=== PATIENT | female | born 1960 | race Caucasian/White ===

== ENCOUNTER 2023-08-09 17:52 | Emergency (ER) | payer OTHER, SELFPAY ==
[2023-08-09 17:56] VITALS: BP 107/84
--- NOTE | 2023-08-09 20:12 | ED.GENMED ---
History of Present Illness
<Linda Mckeon PA-C - Last Filed: 08/10/23 00:26>
General
Chief Complaint: Head Injury
Source: patient
Exam Limitations: none
Time Seen by Provider: 08/09/23 20:10
Nursing documentation reviewed up to this point in time: agreed with
Travel History
Have you had any contact with someone who has COVID-19?: No
Do you have any symptoms of coronavirus? Fever > 100 degrees, chills, cough, shortness of breath, sore throat, loss of taste or smell, muscle aches, or headache?: No
History of Present Illness
History of Present Illness:
This is a 63-year-old female past medical history of dementia, schizophrenia, A-fib on Eliquis, who presents to the emergency department today with head pain following a fall. Patient herself reports that she was sitting at the dining room table
and states that she was given too much to eat and felt nauseous and leaning over to vomit currently fell off her chair at the dining room table and hit her head. EMS documents reports a different story, stating that she was found on the floor next
to her bed. Patient does report that she does have a history of frequent falls. It is unclear how long she has been on the ground.
Past History
<Linda Mckeon PA-C - Last Filed: 08/10/23 00:26>
Past History
ED Past Medical History: HTN, Hypercholesterolemia, Psychiatric (Schizoaffective disorder, bipolar affective disorder) and Other (Anemia, DVT/PE with underlying factor V Leiden deficiency, chronic kidney disease)
ED Past Surgical History: None
Social History
Tobacco: Non-smoker
Alcohol: None
Drug: None
Personal:
Living: detention
Review of Systems
<Linda Mckeon PA-C - Last Filed: 08/10/23 00:26>
Review of Systems
All Other Systems: ROS reviewed and negative except as documented in HPI and ROS
Phy Exam
<Linda Mckeon PA-C - Last Filed: 08/10/23 00:26>
Physical Exam
Physical Exam:
General: patient appears well and is in no acute distress
Skin: warm and dry, no rashes or lesions
HEENT: hematoma located on the right side of the forehead, no other palpable masses.
Cards: regular rate and rhythm, no murmurs
Pulm: normal respiratory effort
Neuro: Patient oriented to person but not time. CN II-XII intact. Patient moving all extremities.
Psych: Patient's baseline cognition unclear, patient is confused. Patient does have hx of dementia and schizophrenia. Patient often does not have logical responses to questions.
Course
<ISAC Lucas Last Filed: 08/10/23 00:26>
Orders/Labs/Results
Orders:
Orders
08/09/23 18:01
CT Head W/o Iv Contrast Urgent
Comment:
Reason For Exam: fall on eliquis
08/09/23 21:11
Complete Blood Count/With Diff Urgent
Comprehensive Metabolic Panel Urgent
[place] Urgent
08/09/23 22:54
Sodium Zirconium Cyclosilicate [Lokelma] 10 gram PO NOW STA
08/09/23 23:05
CR Chest - 2 Views Urgent
Comment:
Reason For Exam: lower pulse ox, altered mental status
Abnormal Lab Results
08/09/23
21:11
RBC 2.92 L 10^6/uL
(4.20-5.40)
Hgb 10.1 L g/dL
(12.0-16.0)
Hct 29.9 L %
(37.0-47.0)
MCV 102.4 H fL
(81.0-99.0)
MCH 34.6 H pg
(27.0-31.0)
Absolute Neuts (auto) 7.0 H 10^3/uL
(1.4-6.5)
Absolute Lymphs (auto) 1.1 L 10^3/uL
(1.2-3.4)
Neutrophils % 79.5 H %
(42.2-75.2)
Lymphocytes % 12.1 L %
(20.5-51.1)
Sodium 133 L mmol/L
(135-145)
Potassium 5.6 H mmol/L
(3.5-5.1)
Carbon Dioxide 21 L mmol/L
(22-30)
BUN 44 H mg/dl
(7-17)
Creatinine 3.3 H mg/dL
(0.6-1.0)
AST 37 H U/L
(14-36)
[place] < 0.2 L mmol/L
(0.6-1.2)
08/09/23 21:11
08/09/23 21:11
Vital Signs
Initial and Last Documented VS:
Initial Vital Signs
Temp Pulse Resp BP Pulse Ox
98.3 F 104 16 107/84 92
08/09/23 17:56 08/09/23 17:56 08/09/23 17:56 08/09/23 17:56 08/09/23 17:56
Last Documented Vital Signs
Temp Pulse Resp BP Pulse Ox
98.3 F 104 16 107/84 92
08/09/23 17:56 08/09/23 17:56 08/09/23 17:56 08/09/23 17:56 08/09/23 17:56
<Fco No, DO - Last Filed: 08/09/23 20:52>
Orders/Labs/Results
Orders:
Orders
08/09/23 18:01
CT Head W/o Iv Contrast Urgent
Comment:
Reason For Exam: fall on eliquis
08/09/23 21:11
Complete Blood Count/With Diff Urgent
Comprehensive Metabolic Panel Urgent
[place] Urgent
08/09/23 22:54
Sodium Zirconium Cyclosilicate [Lokelma] 10 gram PO NOW STA
08/09/23 23:05
CR Chest - 2 Views Urgent
Comment:
Reason For Exam: lower pulse ox, altered mental status
Abnormal Lab Results
08/09/23
21:11
RBC 2.92 L 10^6/uL
(4.20-5.40)
Hgb 10.1 L g/dL
(12.0-16.0)
Hct 29.9 L %
(37.0-47.0)
MCV 102.4 H fL
(81.0-99.0)
MCH 34.6 H pg
(27.0-31.0)
Absolute Neuts (auto) 7.0 H 10^3/uL
(1.4-6.5)
Absolute Lymphs (auto) 1.1 L 10^3/uL
(1.2-3.4)
Neutrophils % 79.5 H %
(42.2-75.2)
Lymphocytes % 12.1 L %
(20.5-51.1)
Sodium 133 L mmol/L
(135-145)
Potassium 5.6 H mmol/L
(3.5-5.1)
Carbon Dioxide 21 L mmol/L
(22-30)
BUN 44 H mg/dl
(7-17)
Creatinine 3.3 H mg/dL
(0.6-1.0)
AST 37 H U/L
(14-36)
[place] < 0.2 L mmol/L
(0.6-1.2)
08/09/23 21:11
08/09/23 21:11
Vital Signs
Initial and Last Documented VS:
Initial Vital Signs
Temp Pulse Resp BP Pulse Ox
98.3 F 104 16 107/84 92
08/09/23 17:56 08/09/23 17:56 08/09/23 17:56 08/09/23 17:56 08/09/23 17:56
Last Documented Vital Signs
Temp Pulse Resp BP Pulse Ox
98.3 F 104 16 107/84 92
08/09/23 17:56 08/09/23 17:56 08/09/23 17:56 08/09/23 17:56 08/09/23 17:56
Procedures
<ISAC Lucas Last Filed: 08/10/23 00:26>
Laceration Closure
Right Eye brow:
Status of Wound: clean
Size of Wound in cm: 1
Description of Wound Edges: sharp
Preparation: cleaned with saline and cleaned with Betadine
Revision/Debridement: routine- no revision
Wound exploration: explored to base- no FB
Type of Closure: Dermabond-skin glue
<ISAC Lucas Last Filed: 08/10/23 00:26>
MDM/Problems Addressed
Differential Diagnosis Includes:
mechanical fall, scalp hematoma, superficial eyebrow laceration, intracranial hemorrhage
MDM/Problems Addressed:
fall, head injury
Chronic conditions affecting care: Other (Dementia, schizophrenia, atrial fibrillation, high blood pressure, hyperlipidemia, chronic renal failure, GERD, anxiety, bipolar disorder)
Acute Exacerbation and/or Progression of Chronic Illness:
schizophrenia
<ISAC Lucas Last Filed: 08/10/23 00:26>
*Radiology
Radiology exam reviewed: preliminary read by ED provider (Chest x-ray reveals no acute cardiopulmonary disease)
*Pulse Oximetry
Patient hypoxic: no
*Critical Care Note
Total Time (30-74mins, 75-104mins- exclusive of procedures): Not Applicable
Data Reviewed
Review of Other/Old Records Reveals: Discharge Summary (Reviewed discharge summary from GI bleed in March 2023)
Prescriptions/Medications Considered But Not Given:
Considered giving patient dose of lithium considering lithium level subtherapeutic, however based on reviewing records from EMS and chart it appears that patient no longer takes lithium based on previous episodes of severe toxicity
Further Testing Considered But Not Given:
n/a
<Linda Mckeon PA-C - Last Filed: 08/10/23 00:26>
Patient Management
Escalation/DeEscalation of care consider admission/obs:
This is a 63-year-old female with an extensive past medical history extensive psychiatric history who presents to the emergency department today with head trauma following a fall. She states that she fell while eating dinner. EMS reports revealed
that she likely fell getting out of bed. She does have a history of schizophrenia and frequently appears confused and is difficult to redirect. It appears that this may be her baseline mental status based on reviewing notes from recent
hospitalization in March. She does take Eliquis due to A-fib and her CT of the head did not reveal any acute bleed however did show a small hematoma on the scalp. Patient currently denies no headache or neck pain at this time. She
spontaneously moves her cervical spine, no imaging the cervical spine indicated at this time. Her CBC reveals anemia which is chronic for her, and her CMP shows chronic renal disease. Her potassium was 5.6 and we did treat her with lokelma. She
is not hyponatremic. At this point, she is stable for discharge.
ED Attending Note
<Linda Mckeon PA-C - Last Filed: 08/10/23 00:26>
-
Portions of this chart may have been created with voice recognition software.� Occasional wrong word or��sound alike� substitutions may have occurred due to the inherent limitations of voice recognition software.
<Fco No, DO - Last Filed: 08/09/23 20:52>
ED Attending Note
Patient seen and examined by attending physician: Yes
I performed the substantive portion of visit, reviewed & personally made and approve the management plan that is documented in note by myself or HOMERO.: Yes
ED Attending Note:
I have seen and evaluated the patient with a [id number] encounter. I have spoken to the advance practicer provider and involved in the medical history, the physical exam, medical decision making.
Evaluation and management service: agree unless noted differently below.
Results interpretation: agree unless noted differently below.
Focused HPI: 63-year-old female presenting with a fall. She was sent in for evaluation of hematoma to her right scalp
Physical exam: Hematoma to right scalp. Subcentimeter superficial laceration to right forehead. Patient appears confused but difficult to obtain whether or not this is baseline
Medical Decision Making: Given the fall and the mild confusion, will obtain basic blood work. CT head negative
Discharge Plan
Departure
Patient Disposition: Home (Routine Discharge)
Date of Disposition: 08/10/23
Time of Disposition: 00:02
Patient with high blood pressure during this ER visit?: No
Condition: Good
Discharge Problem:
Fall, Head injury
Instructions: Head Injury in Adults (DC), Fall Prevention for Older Adults
Prescriptions:
No Action
acetaminophen 500 mg Tablet
1,000 mg PO Q6H PRN (Reason: moderate pain)
sennosides [Senna Laxative] 8.6 mg Tablet
17.2 mg PO HS Qty: 0 0RF
carbamazepine 200 mg Tablet
200 mg PO BID Qty: 0 0RF
polyethylene glycol 3350 [HealthyLax] 17 gram Powder In Packet
17 g PO DAILY Qty: 0 0RF
clonazepam 1 mg Tablet
1 mg PO BID Qty: 4 0RF
sodium bicarbonate 650 mg Tablet
650 mg PO BID Qty: 0 0RF
benztropine 1 mg Tablet
1 mg PO BID Qty: 60 0RF
fluphenazine HCl 5 mg Tablet
5 mg PO HS Qty: 0 0RF
pantoprazole [Protonix] 20 MG tablet,delayed release (DR/EC)
40 mg PO DAILY Qty: 0 0RF
ascorbic acid (vitamin C) 500 mg Tablet
500 mg PO DAILY Qty: 0 0RF
ferrous sulfate [FeroSul] 325 MG tablet
325 mg PO DAILY Qty: 0 0RF
B complex with C 20-folic acid 1 mg Capsule
1 cap PO DAILY Qty: 0 0RF
lovastatin 20 mg Tablet
20 mg PO DAILY Qty: 0 0RF
metoprolol tartrate 25 MG tablet
25 mg PO DAILY Qty: 0 0RF
cholecalciferol (vitamin D3) 25 mcg (1,000 unit) Tablet
25 mcg PO DAILY Qty: 0 0RF
mirtazapine 15 mg Tablet
15 mg PO HS
apixaban 2.5 mg Tablet
2.5 mg PO BID
docusate sodium 100 mg capsule
200 mg PO HS
acetaminophen [Tylenol] 325 mg capsule
650 mg PO Q4HPRN PRN (Reason: mild pain/fever>100F)
Referrals:
Kirk Jeronimo MD [Family Provider] -
Activity Restrictions/Additional Instructions:
Your CT scan of your head did not show any evidence of bleeding.
Please follow-up with your primary care provider.
Please return to emergency department should you experience chest pain, shortness of breath, dizziness, lightheadedness, any further injuries, or other concerning symptoms.
Interventions
Interventions:
*Risk Screen - Suicide Last Done: 08/09/23 19:50
*General Assessment Last Done: 08/09/23 19:50
*Neglect/Abuse Screening Last Done: 08/09/23 19:50
ED- Fall Risk Assessment Last Done: 08/09/23 19:50
*ED COVID-19 Vaccine History Last Done: 08/09/23 19:50
ED- Neurological Assessment Last Done: 08/09/23 19:50
ED-Skin Assessment Last Done: 08/09/23 19:50
[2023-08-09 21:25] LABS: % Basophils 0.6 % (0-2); % Eosinophils 0.9 % (0-6); % Immature Granulocytes 0.3 % (0-0.5); % Lymphocytes 12.1 % (20.5-51.1); % Monocytes 6.6 % (1.7-9.3); % Neutrophils 79.5 % (42.2-75.2); Absolute Basophils 0.1 10^3/uL (0-0.2); Absolute Eosinophils 0.1 10^3/uL (0-0.7); Absolute Lymphocytes 1.1 10^3/uL (1.2-3.4); Absolute Monocytes 0.6 10^3/uL (0.1-0.6); Hematocrit 29.9 % (37.0-47.0); Hemoglobin 10.1 g/dL (12.0-16.0); Mean Corp Hgb Conc. 33.8 g/dL (33.0-37.0); Mean Corpuscular Hgb 34.6 pg (27.0-31.0); Mean Corpuscular Volume 102.4 fL (81.0-99.0); Mean Platelet Volume 9.2 fL (7.4-10.4); Nucleated Red Blood Cells % 0 %; Platelet Count 237 10^3/uL (130-400); Red Blood Cell Count 2.92 10^6/uL (4.20-5.40); Red Cell Dist. Width 13.7 % (11.5-14.5); White Blood Cell Count 8.8 10^3/uL (4.8-10.8)
[2023-08-09 21:51] LABS: ALT (SGPT) 24 U/L (0-35); AST (SGOT) 37 U/L (14-36); Albumin 4.3 g/dl (3.5-5.0); Alkaline Phosphatase 78 U/L (38-126); Blood Urea Nitrogen 44 mg/dl (7-17); Calcium 10.2 mg/dl (8.4-10.2); Carbon Dioxide 21 mmol/L (22-30); Chloride 106 mmol/L (98-107); Glucose 81 mg/dl (70-99); Lithium < 0.2 mmol/L (0.6-1.2); Potassium 5.6 mmol/L (3.5-5.1); Sodium 133 mmol/L (135-145); Total Bilirubin 0.7 mg/dl (0.2-1.3); Total Protein 6.8 g/dl (6.3-8.2); eGFR 15.11
== END 2023-08-10 02:49 | disposition home or self-care (01) ==
LOC: EMR 17:52
PROVIDERS: Physician Assistant; EMERGENCY PHYSICIAN Student in an Organized Health Care Education/Training Program; FAMILY PHYSICIAN Internal Medicine
DX: S01.111A Laceration without foreign body of right eyelid and periocular area, initial encounter (principal); S00.03XA Contusion of scalp, initial encounter; W07.XXXA Fall from chair, initial encounter; R11.2 Nausea with vomiting, unspecified; F03.93 Unspecified dementia, unspecified severity, with mood disturbance; F25.9 Schizoaffective disorder, unspecified; D68.51 Activated protein C resistance; I12.9 Hypertensive chronic kidney disease with stage 1 through stage 4 chronic kidney disease, or unspecified chronic kidney disease; N18.9 Chronic kidney disease, unspecified; Z79.01 Long term (current) use of anticoagulants
CPT/HCPCS: 99285; 12011; 70450; 71046; 80053; 80178; 85025

== ENCOUNTER → 2023-10-10 13:03 | Outpatient (REF) | payer OTHER, SELFPAY | LOC: HWRAD 13:03 | PROVIDERS: ATTENDING PHYSICIAN Physician Assistant; FAMILY PHYSICIAN Internal Medicine | DX: N18.4 Chronic kidney disease, stage 4 (severe) (principal) | CPT/HCPCS: 76770 ==

== ENCOUNTER → 2023-12-27 15:40 | Outpatient (REF) | payer OTHER, SELFPAY ==
[2023-12-27 12:56] LABS: % Eosinophils 14.6 % (0-6); % Immature Granulocytes 1.1 % (0-0.5); % Lymphocytes 15.6 % (20.5-51.1); % Monocytes 8.2 % (1.7-9.3); % Neutrophils 59.5 % (42.2-75.2); Absolute Basophils 0.1 10^3/uL (0-0.2); Absolute Eosinophils 0.8 10^3/uL (0-0.7); Absolute Immature Granulocytes 0.1 10^3/uL (0-0.05); Absolute Lymphocytes 0.8 10^3/uL (1.2-3.4); Absolute Monocytes 0.4 10^3/uL (0.1-0.6); Absolute Neutrophils 3.1 10^3/uL (1.4-6.5); Hematocrit 33.6 % (37.0-47.0); Hemoglobin 10.5 g/dL (12.0-16.0); Mean Corp Hgb Conc. 31.3 g/dL (33.0-37.0); Mean Corpuscular Hgb 33.4 pg (27.0-31.0); Mean Platelet Volume 9.1 fL (7.4-10.4); Nucleated Red Blood Cells % 0 %; Platelet Count 272 10^3/uL (130-400); Red Blood Cell Count 3.14 10^6/uL (4.20-5.40); Red Cell Dist. Width 13.9 % (11.5-14.5); White Blood Cell Count 5.3 10^3/uL (4.8-10.8)
== END ==
LOC: OIDL 15:40
PROVIDERS: ATTENDING PHYSICIAN Nurse Practitioner Adult Health
DX: I26.99 Other pulmonary embolism without acute cor pulmonale (principal)
CPT/HCPCS: 85025

== ENCOUNTER → 2024-08-03 16:12 | Outpatient (REF) | payer OTHER, SELFPAY ==
[2024-08-03 14:26] LABS: Iron 170 ug/dl (37-170)
[2024-08-03 14:36] LABS: Percent Saturation 101 % (20-50); Total Iron Binding Capacity 168 ug/dl (265-497)
== END ==
LOC: OIDL 16:12
PROVIDERS: ATTENDING PHYSICIAN Internal Medicine Hematology & Oncology
DX: I26.99 Other pulmonary embolism without acute cor pulmonale (principal)
CPT/HCPCS: 82728; 83540; 83550

== ENCOUNTER 2024-08-11 19:48 | Inpatient (IN) | payer OTHER, SELFPAY ==
[2024-08-11] VITALS (30 sets, daily range): BP systolic 77–141; BP diastolic 50–109
--- NOTE | 2024-08-11 10:01 | ED.GENMED ---
History of Present Illness
General
Chief Complaint: Fever
Source: patient
Exam Limitations: none
Time Seen by Provider: 08/11/24 09:52
History of Present Illness
History of Present Illness:
64-year-old female with history of dementia presents from [facility] with change in mental status. Fever was noted at the facility she was given Tylenol. She typically is oriented to self. Patient is a poor historian. She denies pain.
Past History
Past History
ED Past Medical History: HTN, Hypercholesterolemia, Psychiatric (Schizoaffective disorder, bipolar affective disorder) and Other (Anemia, DVT/PE with underlying factor V Leiden deficiency, chronic kidney disease)
ED Past Surgical History: None
Social History
Tobacco: Non-smoker
Alcohol: None
Drug: None
Personal:
Living: assisted
Phy Exam
Physical Exam
Physical Exam:
General: Cachectic appearing female no acute respiratory distress
HEENT: Normocephalic mucosa dry neck is supple
Heart: Regular rate and rhythm
Lungs: Clear no wheeze
Abdomen is soft nontender nondistended no guarding or rebound
Neurologic exam alert oriented to person and place no facial asymmetry no unilateral deficit noted
Extremities: No cyanosis or edema
Sepsis
Sepsis Screening
Sepsis Assessment: Severe Sepsis
Sepsis Screening: Hypotension
Sepsis Screen
Sepsis Screen: Severe Sepsis
Date: 08/11/24
Time: 11:21
Course
Orders/Labs/Results
Orders:
Orders
08/11/24 09:56
0.9% Sodium Chloride 1000 ml [Nss] 1,000 ml IV BOLUS
08/11/24 09:57
Acetaminophen [Tylenol] 650 mg PO NOW STA
CR Chest Portable - 1 View Urgent
Comment:
Reason For Exam: fever
Reason Study Needs to be Portable: Patient Unstable
08/11/24 10:05
COVID-19 Antigen Urgent
Source: Nasal Swab
Complete Blood Count/With Diff Urgent
Comprehensive Metabolic Panel Urgent
Lactic Acid Q4H
Comment: CANCEL 2nd LACTIC ACID IF 1st LACTIC ACID IS LESS THAN 2
Urinalysis Reflex To Culture Urgent
Date Specimen was Collected: 08/11/24
Time Specimen was Collected: 10:02
Urine Microscopic Reflex Cult Urgent
Blood Culture Q30M
INOCENCIO Source: Blood/Venous
Specimen Description:
Influenza A+B Rapid Molecular Urgent
INOCENCIO Source: Nasal Swab
Specimen Description:
Acetaminophen [Tylenol/Feverall] 650 mg RECTAL NOW STA
08/11/24 10:07
Blood Culture Q30M
INOCENCIO Source: Blood/Venous
Specimen Description:
08/11/24 11:17
0.9% Sodium Chloride 1000 ml [Nss] 1,000 ml IV BOLUS
08/11/24 11:18
Piperacillin/Tazo 3.375 Gram [Zosyn] 3.375 gram in 50 ml IV NOW
Vancomycin 1 Gram/200 ml [Vancocin] 1 gram in 200 ml IV NOW
Abnormal Lab Results
08/11/24
10:05
RBC 2.96 L 10^6/uL
(4.20-5.40)
Hgb 10.1 L g/dL
(12.0-16.0)
Hct 32.8 L %
(37.0-47.0)
MCV 110.8 H fL
(81.0-99.0)
MCH 34.1 H pg
(27.0-31.0)
MCHC 30.8 L g/dL
(33.0-37.0)
RDW 17.1 H %
(11.5-14.5)
Absolute Lymphs (auto) 0.8 L 10^3/uL
(1.2-3.4)
Absolute Monos (auto) 0.9 H 10^3/uL
(0.1-0.6)
Neutrophils % 77.6 H %
(42.2-75.2)
Lymphocytes % 9.9 L %
(20.5-51.1)
Monocytes % 11.1 H %
(1.7-9.3)
Sodium 154 H mmol/L
(135-145)
Chloride 122 H mmol/L
(98-107)
Carbon Dioxide 16 L mmol/L
(22-30)
BUN 90 H mg/dl
(7-17)
Creatinine 6.9 H* mg/dL
(0.6-1.0)
Glucose 104 H mg/dl
(70-99)
Calcium 10.9 H mg/dl
(8.4-10.2)
Leukocyte Esterase Rfl Trace A
(Negative)
Urine Albumin (Reflex) 2+ A
(Neg - Trace)
08/11/24 10:05
08/11/24 10:05
Vital Signs
Initial and Last Documented VS:
Initial Vital Signs
Temp Pulse Resp BP Pulse Ox
100.9 F H 94 17 77/50 97
08/11/24 09:47 08/11/24 09:47 08/11/24 09:47 08/11/24 09:47 08/11/24 09:47
Last Documented Vital Signs
Temp Pulse Resp BP Pulse Ox
100.9 F H 85 18 97/57 99
08/11/24 09:47 08/11/24 10:30 08/11/24 10:30 08/11/24 10:30 08/11/24 10:30
MDM/Problems Addressed
Differential Diagnosis Includes:
Patient with change in mental status. Noted to have temperature here 100.9. She is hypotensive on arrival. Concern for possible sepsis. Check urine COVID flu chest x-ray lactic acid blood cultures and blood work. Tylenol ordered fluids ordered.
Straight cath urine specimen pending. EKG was reviewed and shows normal sinus rhythm with rate of 95 without ischemic changes.
*Critical Care Note
Total Time (30-74mins, 75-104mins- exclusive of procedures): Not Applicable
Update Note
Update Note:
Patient hypotensive here flu and COVID-negative chest x-ray without obvious pneumonia. Urinalysis without obvious sign of infection. Concern for sepsis. Will give 2 L of fluid. Vancomycin and Zosyn ordered prophylactically with blood cultures
pending
ED Attending Note
-
Portions of this chart may have been created with voice recognition software.� Occasional wrong word or��sound alike� substitutions may have occurred due to the inherent limitations of voice recognition software.
Discharge Plan
Departure
Patient Disposition: Admit
Date of Disposition: 08/11/24
Time of Disposition: 11:21
Presentation/result/management discussed w/ accepting MD/DO: Hospitalist
Discharge Problem:
Sepsis, REINA (acute kidney injury)
Prescriptions:
No Action
acetaminophen 500 mg Tablet
1,000 mg PO Q6H PRN (Reason: moderate pain)
sennosides [Senna Laxative] 8.6 mg Tablet
17.2 mg PO HS Qty: 0 0RF
carbamazepine 200 mg Tablet
200 mg PO BID Qty: 0 0RF
polyethylene glycol 3350 [HealthyLax] 17 gram Powder In Packet
17 g PO DAILY Qty: 0 0RF
clonazepam 1 mg Tablet
1 mg PO BID Qty: 4 0RF
sodium bicarbonate 650 mg Tablet
650 mg PO BID Qty: 0 0RF
benztropine 1 mg Tablet
1 mg PO BID Qty: 60 0RF
fluphenazine HCl 5 mg Tablet
5 mg PO HS Qty: 0 0RF
pantoprazole [Protonix] 20 MG tablet,delayed release (DR/EC)
40 mg PO DAILY Qty: 0 0RF
ascorbic acid (vitamin C) 500 mg Tablet
500 mg PO DAILY Qty: 0 0RF
ferrous sulfate [FeroSul] 325 MG tablet
325 mg PO DAILY Qty: 0 0RF
B complex with C 20-folic acid 1 mg Capsule
1 cap PO DAILY Qty: 0 0RF
lovastatin 20 mg Tablet
20 mg PO DAILY Qty: 0 0RF
metoprolol tartrate 25 MG tablet
25 mg PO DAILY Qty: 0 0RF
cholecalciferol (vitamin D3) 25 mcg (1,000 unit) Tablet
25 mcg PO DAILY Qty: 0 0RF
mirtazapine 15 mg Tablet
15 mg PO HS
apixaban 2.5 mg Tablet
2.5 mg PO BID
docusate sodium 100 mg capsule
200 mg PO HS
acetaminophen [Tylenol] 325 mg capsule
650 mg PO Q4HPRN PRN (Reason: mild pain/fever>100F)
Referrals:
Kirk Jeronimo MD [Family Provider] -
Interventions
Interventions:
*Risk Screen - Suicide Last Done: 08/11/24 10:30
*General Assessment Last Done: 08/11/24 09:47
*Neglect/Abuse Screening Last Done: 08/11/24 09:47
ED- Fall Risk Assessment Last Done: 08/11/24 10:30
*ED COVID-19 Vaccine History Last Done: 08/11/24 09:47
ED- Neurological Assessment Last Done: 08/11/24 10:30
ED-Skin Assessment Last Done: 08/11/24 10:30
Discharge Date and Time
Print Language: SLOVENIAN
[2024-08-11] MEDS: TYLENOL/FEVERALL 650 MG RECTAL (10:10)
[2024-08-11] MEDS: NSS 1000 IV ×2 (10:10→11:53)
[2024-08-11 10:20] LABS: % Basophils 0.4 % (0-2); % Eosinophils 0.5 % (0-6); % Immature Granulocytes 0.5 % (0-0.5); % Lymphocytes 9.9 % (20.5-51.1); % Monocytes 11.1 % (1.7-9.3); % Neutrophils 77.6 % (42.2-75.2); Absolute Lymphocytes 0.8 10^3/uL (1.2-3.4); Absolute Monocytes 0.9 10^3/uL (0.1-0.6); Absolute Neutrophils 5.9 10^3/uL (1.4-6.5); Hematocrit 32.8 % (37.0-47.0); Hemoglobin 10.1 g/dL (12.0-16.0); Mean Corp Hgb Conc. 30.8 g/dL (33.0-37.0); Mean Corpuscular Hgb 34.1 pg (27.0-31.0); Mean Corpuscular Volume 110.8 fL (81.0-99.0); Mean Platelet Volume 9.6 fL (7.4-10.4); Nucleated Red Blood Cells % 0.9 %; Platelet Count 208 10^3/uL (130-400); Red Blood Cell Count 2.96 10^6/uL (4.20-5.40); Red Cell Dist. Width 17.1 % (11.5-14.5); White Blood Cell Count 7.6 10^3/uL (4.8-10.8)
[2024-08-11 10:31] LABS: Lactic Acid 1.2 mmol/L (0.7-2.0)
[2024-08-11 10:32] LABS: COVID-19 Antigen Negative (Negative)
[2024-08-11 10:37] LABS: Urine Albumin 2+ (Neg - Trace); Urine Bilirubin Negative (Negative); Urine Character Clear (Clear); Urine Color Yellow; Urine Glucose Negative (Negative); Urine Ketone Negative (Negative); Urine Leukocyte Trace (Negative); Urine Nitrite Negative (Negative); Urine Occult Blood Negative (Negative); Urine Specific Gravity 1.015 (<1.030); Urine Urobilinogen Negative (Neg - 1+)
[2024-08-11 10:38] LABS: ALT (SGPT) 24 U/L (0-35); AST (SGOT) 27 U/L (14-36); Alkaline Phosphatase 83 U/L (38-126); Blood Urea Nitrogen 90 mg/dl (7-17); Calcium 10.9 mg/dl (8.4-10.2); Carbon Dioxide 16 mmol/L (22-30); Chloride 122 mmol/L (98-107); Glucose 104 mg/dl (70-99); Potassium 4.9 mmol/L (3.5-5.1); Sodium 154 mmol/L (135-145); Total Bilirubin 0.6 mg/dl (0.2-1.3); Total Protein 6.3 g/dl (6.3-8.2)
[2024-08-11] MEDS: ZOSYN 50 IV (11:48)
[2024-08-11] MEDS: VANCOCIN 200 IV (11:53)
[2024-08-11 13:25] LABS: Urine Red Blood Cell None Seen /HPF (0-2); Urine White Cell 0-2 /HPF (0-5)
--- NOTE | 2024-08-11 18:39 | HPS.HSE ---
Addendum entered and electronically signed by Tino Perez DO 08/11/24 20:19:
Patient seen and examined independently. Agree with findings and plan as set forth by PAUL Reid.
Patient is a 64y F with PMH significant for bipolar/ schizoaffective disorder, A-Fib and CKD who presents to ED from local [place] for evaluation of mental status change. Noted to have temp of 100.9 on arrival in the ED. Normal CXR, urinalysis.
Negative COVID / Flu. No other evidence / findings of acute infection. Labs reveal significant REINA and patient appears hypovolemic on exam.
Ass:
Acute TME
REINA on CKD IV
Dehydration
Metabolic Acidosis
Benign Hypertension
Paroxysmal Atrial Fibrillation
Chronic Macrocytic Anemia
Chronic Impaired Cognition
Bipolar Disorder
Schizoaffective Disorder
Plan:
Admit for further evaluation and treatment.
IVFs with supplemental bicarb for now.
Nephrology evaluation for additional recommendations.
Observe off of further abx for now.
Follow fever curve and follow-up culture data.
Follow for any clinical changes.
Continue outpatient meds / psychotropic regimen.
Original Note:
Family Physician
-
Family Physician: Kirk Jeronimo
Chief Complaint
-
change in mental status
History of Present Illness
Patient is a 62-year-old female with past medical history significant for hypertension, CKD, atrial fibrillation, bipolar, and schizoaffective disorder who presented to [place] ED from [facility] via EMS with change in mental status and
fever.
Medical History
Past Medical History
Past Medical History: Reports Other
Additional Past Medical History:
hypertension
CKD
atrial fibrillation
bipolar
schizoaffective disorder
hx PE
hx toxic encephalopathy
Past Surgical History: Reports None
Social History
Unable to obtain full social history at this time due to: Dementia
Family History
Family History: Unable to Obtain
Allergies / Home Medications
Allergies reflects when Allergies were last updated in [facility].
Home Medications with original date entered in [facility]
Allergy/Medication List:
Allergies
Allergy/AdvReac Type Severity Reaction Status Date / Time
divalproex sodium Allergy Unknown Verified 08/11/24 10:33
[From Depakote]
lithium Allergy Unknown Verified 08/11/24 10:33
Home Medications
ascorbic acid (vitamin C) 500 mg tablet 500 mg PO DAILY Supplement #0 tabs 03/31/23
ferrous sulfate 325 mg (65 mg iron) tablet (FeroSul) 325 mg PO DAILY Supplement #0 tabs 03/31/23
polyethylene glycol 3350 17 gram oral powder packet (HealthyLax) 17 g PO DAILY Constipation #0 ea 03/31/23
sennosides 8.6 mg tablet (Senna Laxative) 17.2 mg (2 x 8.6 mg) PO HS Constipation #0 tabs 03/31/23
apixaban 2.5 mg tablet 2.5 mg PO BID 08/09/23
docusate sodium 100 mg capsule 200 mg PO HS Constipation 08/09/23
acetaminophen 325 mg tablet (Tylenol) 650 mg PO Q4H PRN mild pain/fever 08/11/24
amantadine HCl 100 mg tablet 100 mg PO BID drug induces dyskinesia 08/11/24
atorvastatin 40 mg tablet 40 mg PO DAILY 08/11/24
bisacodyl 10 mg rectal suppository 10 mg NE DAILY PRN no BM post MOM 08/11/24
carbamazepine 100 mg chewable tablet 300 mg PO BID 08/11/24
clonazepam 1 mg tablet 1 mg PO TID Mental Health/Anxiety 08/11/24
magnesium hydroxide 400 mg/5 mL oral suspension (Milk of Magnesia) 30 ml PO DAILYPRN PRN no BM x 72 hours 08/11/24
metoprolol succinate 25 mg capsule sprinkle, ext. release 24 hr 25 mg PO DAILY 08/11/24
mirtazapine 7.5 mg tablet 7.5 mg PO HS 08/11/24
pantoprazole 40 mg tablet,delayed release (Protonix) 40 mg PO DAILY 08/11/24
quetiapine 150 mg tablet 150 mg PO BID 08/11/24
sodium bicarbonate 650 mg tablet 650 mg PO TID 08/11/24
vitamin B complex-vitamin C-folic acid 0.8 mg tablet (Renal-Karina) 1 tab PO DAILY 08/11/24
Review of Systems
-
Unable to obtain full review of systems at this time due to: Dementia
History Source: [facility]
Constitutional: Reports Fever
Neurological: Reports Other (change in mental status )
Physical Exam
Vital Signs
Vital Signs
Temp Pulse Resp BP Pulse Ox
98.6 F 87 16 116/65 100
08/11/24 15:00 08/11/24 16:00 08/11/24 16:00 08/11/24 16:00 08/11/24 15:30
Physical Exam
General: Well Developed, Well Nourished, No Apparent Distress, Comfortable and Slurred Speech
HEENT: NormoCephalic, Atraumatic, [place] Conjunctivae, Nose Appears Normal and Ears Appear Normal
Respiratory: Clear and Non Labored Respirations
Cardiac: S1/S2 and Regular Rhythm; No Murmur, Rub or Gallop
Breast: Deferred by me
GI: Soft, Non Tender, Non Distended and Normal Bowel Sounds; No Organomegaly
Rectal: Deferred by Provider
Genito-urinary: Deferred by me
Musculoskeletal: No Clubbing, No Cyanosis and No Edema
Skin: Warm and IV/Catheter Site; No Rash
Neuro: Awake, Alert and Nonfocal/grossly intact
Psych: Calm and Confused
Laboratory Results
-
08/11/24 10:05
08/11/24 10:05
Laboratory Results
Lactic Acid 1.2 mmol/L (0.7-2.0) 08/11/24 10:05
Total Bilirubin 0.6 mg/dl (0.2-1.3) 08/11/24 10:05
AST 27 U/L (14-36) 08/11/24 10:05
ALT 24 U/L (0-35) 08/11/24 10:05
Alkaline Phosphatase 83 U/L (38-126) 08/11/24 10:05
Data Reviewed
-
Diagnostic Radiology: Report Reviewed by me (CXR: No acute cardiopulmonary process. Improved inspiratory effort.)
Medical Tests (Nuc Med, Echo, EKG etc): Report Reviewed by me (EKG: NORMAL SINUS RHYTHM NORMAL ECG)
Lab Data: Labs Reviewed by me (WBC 7.6, hgb 10.1, hct 32.8, Na+ 154, BUN 90, Creat 6.9, CO2 16, Ca 10.9)
Impression/Plan
-
IMPRESSION/PLAN:
#acute on chronic kidney disease
BUN 90, Creat 6.9, Na+ 154, Ca+ 10.9, CO2 16
- consult nephrology
- Bicarb IVF
- monitor CMP
- renal US
#hypertension
- continue metoprolol
#hyperlipidemia
- continue atorvastatin
#atrial fibrillation
EKG: NORMAL SINUS RHYTHM
- continue Eliquis, metoprolol
#bipolar
#schizoaffective disorder
- continue clonazepam, mirtazapine, quetiapine
#anemia
hgb 10.1/hct 32.8
- Hematest stool pending
- monitor h/h
#hx PE
#hx toxic encephalopathy
Code status: DNR
DVT Prophylaxis: heparin sq
[2024-08-11] MEDS: COLACE 200 MG PO (23:03)
[2024-08-11] MEDS: SENOKOT 17.2 MG PO (23:04)
[2024-08-11] MEDS: ELIQUIS 2.5 MG PO (23:05)
[2024-08-11] MEDS: SEROQUEL 150 MG PO (23:05)
[2024-08-11] MEDS: SYMMETREL 100 MG PO (23:06)
[2024-08-11] MEDS: KLONOPIN 1 MG PO (23:11)
[2024-08-11] MEDS: SODIUM BICARBONATE 1075 MEQ IV (23:17)
[2024-08-11] MEDS: REMERON 7.5 MG PO ×2 (23:20→23:21)
[2024-08-11] MEDS: TEGRETOL CHEWABLE 300 MG PO (23:20)
[2024-08-12] VITALS (7 sets, daily range): BP systolic 101–143; BP diastolic 59–83
[2024-08-12 06:08] LABS: Hematocrit 32.4 % (37.0-47.0); Hemoglobin 9.7 g/dL (12.0-16.0); Mean Corp Hgb Conc. 29.9 g/dL (33.0-37.0); Mean Corpuscular Hgb 34.2 pg (27.0-31.0); Mean Corpuscular Volume 114.1 fL (81.0-99.0); Mean Platelet Volume 9.7 fL (7.4-10.4); Platelet Count 162 10^3/uL (130-400); Red Blood Cell Count 2.84 10^6/uL (4.20-5.40); Red Cell Dist. Width 17.7 % (11.5-14.5); White Blood Cell Count 6.2 10^3/uL (4.8-10.8)
[2024-08-12 06:37] LABS: ALT (SGPT) 33 U/L (0-35); AST (SGOT) 29 U/L (14-36); Albumin 3.3 g/dl (3.5-5.0); Alkaline Phosphatase 83 U/L (38-126); Blood Urea Nitrogen 86 mg/dl (7-17); Calcium 10.3 mg/dl (8.4-10.2); Carbon Dioxide 16 mmol/L (22-30); Chloride 126 mmol/L (98-107); Glucose 93 mg/dl (70-99); Potassium 4.7 mmol/L (3.5-5.1); Sodium 153 mmol/L (135-145); Total Bilirubin 0.4 mg/dl (0.2-1.3); Total Protein 5.5 g/dl (6.3-8.2); eGFR 7.18
[2024-08-12] MEDS: PROTONIX 40 MG PO (07:57)
[2024-08-12] MEDS: ELIQUIS 2.5 MG PO ×2 (07:57→20:05)
[2024-08-12] MEDS: KLONOPIN 1 MG PO ×3 (07:57→22:42)
[2024-08-12] MEDS: TOPROL XL 25 MG PO (07:57)
[2024-08-12] MEDS: FEOSOL 325 MG PO (07:57)
[2024-08-12] MEDS: LIPITOR 40 MG PO (07:57)
[2024-08-12] MEDS: NEPHROCAP 1 CAPSULE PO (08:30)
[2024-08-12] MEDS: VITAMIN C 500 MG PO (08:30)
[2024-08-12] MEDS: SYMMETREL 100 MG PO ×2 (08:30→20:50)
[2024-08-12] MEDS: TEGRETOL CHEWABLE 300 MG PO ×2 (08:30→20:04)
--- NOTE | 2024-08-12 09:52 | W.CON.NEPH ---
Consultation
-
Date/Time Consultation Requested: 08/11/24 2154
Date/Time Consultation Performed: 08/12/24 1100
Requesting Provider: Tino Landers
Performing Provider: Rina Mcmahon
Reason for Consultation: REINA with CKD, hypernatremia
Medical History
-
Chief Complaint: AMS
History of Present Illness:
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
metabolic acidosis on PO bicarb therapy who presents to ED from [facility] for evaluation of mental status change. Reportedly had fever at [place], and temp of 100.9 on arrival in the ED. Labs noted cr 6.9, bicarb 16, sodium 153 hence
nephrology consulted. She had Normal CXR, urinalysis. Negative COVID / Flu. She was hypotensive in 70s ini ER now improved with IVF.
reports pt was followed with Dr Villalta Nephrology at [facility] for CKD and and was sent for US for AVF. But now thinks she may not do well on HD so having second thoughts. last saw Nephrology 2weeks ago.
Past Medical History
hypertension
CKD
atrial fibrillation
bipolar
schizoaffective disorder
SZDO
hx PE, factor V Leiden
hx toxic encephalopathy
Dementia
HLD
GERD
HTTN
Social History
unable to obtain with MS change
Family History
unable to obtain with MS change
Allergies / Home Medications
Allergy/AdvReac Type Severity Reaction Status Date / Time
divalproex sodium Allergy Unknown Verified 08/11/24 10:33
[From Depakote]
lithium Allergy Unknown Verified 08/11/24 10:33
�Medication �Instructions �Recorded �Confirmed �Type
ascorbic acid (vitamin C) 500 mg 500 mg PO DAILY Supplement #0 tabs 03/31/23 08/11/24 Rx
tablet
ferrous sulfate 325 mg (65 mg 325 mg PO DAILY Supplement #0 tabs 03/31/23 08/11/24 Rx
iron) tablet (FeroSul)
polyethylene glycol 3350 17 gram 17 g PO DAILY Constipation #0 ea 03/31/23 08/11/24 Rx
oral powder packet (HealthyLax)
sennosides 8.6 mg tablet (Senna 17.2 mg (2 x 8.6 mg) PO HS 03/31/23 08/11/24 Rx
Laxative) Constipation #0 tabs
apixaban 2.5 mg tablet 2.5 mg PO BID 08/09/23 08/11/24 History
docusate sodium 100 mg capsule 200 mg PO HS Constipation 08/09/23 08/11/24 History
acetaminophen 325 mg tablet 650 mg PO Q4H PRN mild pain/fever 08/11/24 08/11/24 History
(Tylenol)
amantadine HCl 100 mg tablet 100 mg PO BID drug induces 08/11/24 08/11/24 History
dyskinesia
atorvastatin 40 mg tablet 40 mg PO DAILY 08/11/24 08/11/24 History
bisacodyl 10 mg rectal suppository [address] DAILY PRN no BM post MOM 08/11/24 08/11/24 History
carbamazepine 100 mg chewable 300 mg PO BID 08/11/24 08/11/24 History
tablet
clonazepam 1 mg tablet 1 mg PO TID Mental Health/Anxiety 08/11/24 08/11/24 History
magnesium hydroxide 400 mg/5 mL 30 ml PO DAILYPRN PRN no BM x 72 08/11/24 08/11/24 History
oral suspension (Milk of Magnesia) hours
metoprolol succinate 25 mg capsule 25 mg PO DAILY 08/11/24 08/11/24 History
sprinkle, ext. release 24 hr
mirtazapine 7.5 mg tablet 7.5 mg PO HS 08/11/24 08/11/24 History
pantoprazole 40 mg tablet,delayed 40 mg PO DAILY 08/11/24 08/11/24 History
release (Protonix)
quetiapine 150 mg tablet 150 mg PO BID 08/11/24 08/11/24 History
sodium bicarbonate 650 mg tablet 650 mg PO TID 08/11/24 08/11/24 History
vitamin B complex-vitamin C-folic 1 tab PO DAILY 08/11/24 08/11/24 History
acid 0.8 mg tablet (Renal-Karina)
Review of Systems
-
Unable to obtain due to MS change
Physical Exam
Vital Signs
Vital Signs
Temp Pulse Resp BP Pulse Ox
98.3 F 73 22 132/82 100
08/12/24 08:01 08/12/24 08:01 08/12/24 08:01 08/12/24 08:01 08/12/24 08:01
Lab Results
WBC 6.2 10^3/uL (4.8-10.8) 08/12/24 05:17
RBC 2.84 10^6/uL (4.20-5.40) L 08/12/24 05:17
Hgb 9.7 g/dL (12.0-16.0) L 08/12/24 05:17
Hct 32.4 % (37.0-47.0) L 08/12/24 05:17
Plt Count 162 10^3/uL (130-400) D 08/12/24 05:17
Sodium 153 mmol/L (135-145) H 08/12/24 05:17
Potassium 4.7 mmol/L (3.5-5.1) 08/12/24 05:17
Chloride 126 mmol/L (98-107) H 08/12/24 05:17
Carbon Dioxide 16 mmol/L (22-30) L 08/12/24 05:17
BUN 86 mg/dl (7-17) H 08/12/24 05:17
Creatinine 6.1 mg/dL (0.6-1.0) H* 08/12/24 05:17
eGFR 7.18 08/12/24 05:17
Glucose 93 mg/dl (70-99) 08/12/24 05:17
Calcium 10.3 mg/dl (8.4-10.2) H 08/12/24 05:17
Albumin 3.3 g/dl (3.5-5.0) L 08/12/24 05:17
Physical Exam
General: No Distress, Nontoxic and Other (not responsive)
HEENT: Neck Supple and No JVD
Respiratory: Clear, Normal Excursion and Nonlabored Respirations
Cardiac: S1/S2 and Regular Rate/Rhythm
Breast: Deferred by me
Abdomen: Soft, Nontender and Nondistended
Musculoskeletal: No Cyanosis and No Edema
Skin: No Rash
Neuro: Other (unbale to assess with AMS)
Psych: Other (unable to assess with AMS)
Data Reviewed
-
Radiology: Report Reviewed by me and Discussed with Family
Labs: Labs Reviewed by me, Discussed with Physician and Discussed with Family
Assessment/Plan
-
IMP:
Acute TME
GPC bacteremia
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
Non gap Metabolic Acidosis
Hypernatremia
Mild hypercalcemia
Anemia-macrocytic
Hypotension on admit
Benign Hypertension
Paroxysmal Atrial Fibrillation
Chronic Macrocytic Anemia
Chronic Impaired Cognition
Bipolar Disorder
Schizoaffective Disorder
SZDO?
h/o DVT, PE -factor V leiden
Plan:
[place]MS from [place]
REINA-last cr was at 3.3 in Jul 2023, no recent baseline known
suspect prerenal, bland UA, check bladder scan and renal US, check Fena
would cont hypotonic fluids specially for hypernatremia
free water deficit is close to 2lit
Also met acidosis -resume po bicarb when starts po
will try to correct hypernatremia first
follow labs later today and adjust IVF
no emergent indication of HD however high risk of needing if no improvement
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
noted +ve bld cx-echo pending, ID consulted
dose meds renally
d/w primary
[2024-08-12] MEDS: SODIUM BICARBONATE 1075 MEQ IV ×2 (09:54→21:55)
[2024-08-12] MEDS: SEROQUEL 150 MG PO ×2 (09:55→20:04)
--- NOTE | 2024-08-12 09:58 | W.PN.HOSP.TC ---
Today's Communication/Plan
-
continue bicarbonate IVF
Renal US, bladder scans
Nephrology consult
Vanco pending ID consult, Echo
Assessment / Plan
Assessment / Plan
Assessment:
Acute TME
Febrile illness
- UA/CXR clear
- Bcx x 2 growing GPC - unsure if real vs contaminant with both sets drawn 2 minutes apart - start empiric IV Vanco (requires intensive monitoring of levels)
- check Echo to eval for endocarditis
- ID consult
REINA on CKD IV
Dehydration with acute hypernatremia, hypercalcemia
acute Metabolic Acidosis
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
- continue bicarbonate IVF
- follow BMPs
- check bladder scans
- nephrology consulted
Benign Hypertension
Paroxysmal Atrial Fibrillation
- continue Eliquis
- continue Metoprolol
Chronic Macrocytic Anemia
- Hb stable around 9.5 to 10 range
Chronic Impaired Cognition (likely Dementia)
Bipolar Disorder
Schizoaffective Disorder with hx of psychosis
- continue Amantadine/Carbamazepine/Klonopin/Remeron/Seroquel
Hx of Factor V Leiden (hx of DVTs)
- maintained now on Eliquis; previously Coumadin
GERD on PPI
DVT ppx:
Code: DNR/DNI
Anticipated Discharge: > 48 hours
Subjective/Interval History
-
Date of Service: August 12, 2024
no new complaints at present
Objective Data
-
Labs:
Laboratory Results
08/12/24
05:17
WBC 6.2
Hgb 9.7 L
Hct 32.4 L
Plt Count 162 D
Sodium 153 H
Potassium 4.7
Chloride 126 H
Carbon Dioxide 16 L
BUN 86 H
Creatinine 6.1 H*
Glucose 93
Calcium 10.3 H
Total Bilirubin 0.4
AST 29
ALT 33
Alkaline Phosphatase 83
Vital Signs:
Vital Signs
Temp Pulse Resp BP Pulse Ox
98.3 F 73 22 132/82 100
08/12/24 08:01 08/12/24 08:01 08/12/24 08:01 08/12/24 08:01 08/12/24 08:01
I&O
08/11/24 08/12/24 08/13/24
06:59 06:59 06:59
Intake Total 1080 / 1080
Output Total 450 / 450
Balance 630 / 630
Physical Exam
-
General: No Apparent Distress
HEENT: Normocephalic and Atraumatic
Respiratory: Negative Wheezes
Cardiac: Regular Rhythm and S1/S2
GI: Soft and Nontender
Neuro: Awake and Alert
Psych: Calm
Data Reviewed
-
Total Time Spent with Patient (in minutes): 51
Labs: Labs Reviewed by me
--- NOTE | 2024-08-12 10:10 | PTCARENOTE ---
Pt w/ good appetite, but needs a lot of assistance w/ eating d/t tremors. Does not have dentures so does better w/ soft foods.
--- NOTE | 2024-08-12 12:38 | PTOTSP ---
Speech Therapy Evaluation:
Pt with chronic risk of dysphagia (dementia) that is acutely exacerbated by change in mental status. No s/sx of aspiration at bedside, although oral phase impacted by status of dentition/lingua. Pt with increased risk of aspiration given dependence
for oral care and feeding. CXR without evidence of PNA.
Recommend:
1. Downgrade to baseline diet of IDDSI Level 5 (minced and moist solids) and Thin Liquids
2. Medications crushed in applesauce
3. Direct SPV and 1:1 assistance [address] feeding
[address] ST to follow - likely brief
[2024-08-12 13:29] LABS: Vancomycin Random 13.7 ug/ml
--- NOTE | 2024-08-12 14:02 | PHA.VAN.IN ---
Assessment
- Assessment
Renal Function: Appears elevated from baseline
Maximum Temperature: 100.9
Minimum Temperature: 98.3
Plan
- Plan
Initial / Loading Dose: vancomycin 1 g x 1 on 08.11, vancomycin 500 mg x 1 on 08.12
Monitoring: dose by level. Next level on 08.13 @ 0600
Pharmacokinetics Vancomycin I
- -
Patient Age: 64
Patient Sex: Female
Vancomycin Day #: 2
Indication: Bacteremia
Requesting Provider: Yfn Zuleta
Pertinent Antimicrobial Allergies:
none
Height / Weight:
Actual Weight 41.3 kg
Pertinent Past Medical History: REINA on CKD,
- Vital Signs / Lab Results
Temp Pulse Resp BP Pulse Ox
99.1 F 74 18 104/65 95
08/12/24 11:39 08/12/24 11:39 08/12/24 11:39 08/12/24 11:39 08/12/24 11:39
Lab Results - Hematology
08/11/24 08/12/24
10:05 05:17
WBC 7.6 6.2
Lab Results - Chemistry
08/11/24 08/12/24
10:05 05:17
BUN 90 H 86 H
Creatinine 6.9 H* 6.1 H*
Albumin 4.0 3.3 L
08/11/24 08/11/24
10:00 10:05
Lactic Acid Cancelled 1.2
Lab Results - Urine
08/11/24
10:05
Urine Nitrite (Reflex) Negative
Leukocyte Esterase Rfl Trace A
Urine WBC (Reflex) 0-2
Ur Squamous Epith Cells 3-5
Microbiology Results
08/11/24 10:07 Blood Culture - Preliminary
Blood/Venous Positive culture in progress
Gram Stain - Preliminary
08/11/24 10:05 Blood Culture - Preliminary
Blood/Venous Positive culture in progress
Gram Stain - Preliminary
08/11/24 10:05 Influenza Types A & B (OLGA) - Final
Nasal Swab Negative for Influenza A & B, NAAT
Negative results must be combined with clinical observations
and patient history.
Nucleic Acid Amplification test (NAAT)performed on the
[employer] platform.
--- NOTE | 2024-08-12 14:15 | PTCARENOTE ---
Bladder scan done d/t decreased urine output for >525. Pt prompted to void but unable. Straight cathed for 600 mL clear/yellow urine. Pt w/ dark brown/black stool smears in diaper - heme test negative.
[2024-08-12] MEDS: VANCOCIN HCL 500 MG 100 IV (14:48)
--- NOTE | 2024-08-12 15:41 | CON.ID ---
Consultation
-
Date/Time Consultation Requested: 08/12/2024 0845
Date/Time Consultation Performed: 08/12/2024 1450
Requesting Provider: Dr. Coulter
Performing Provider: Dr. Fitch
Reason for Consultation: Bacteremia, change in mental status
Chief Complaint / Past History
History of Present Illness
Leyda Albarado is a 65-year-old female being seen in infectious ease consultation at the request of Dr. Coulter regarding bacteremia and change in mental status. History is obtained from chart review along with patient interview, but patient was
found to provide very little in the way of history for me.
The patient has underlying history of schizoaffective disorder, along with bipolar disease. She resides at [facility]. She was brought to the ER on 08/11/2024 after staff at the facility noted a change in her overall mental status,
although the degree of which is not noted in the record. In the emergency room, she was found to be febrile, and blood cultures obtained at the time of admission Patrick Jones felt to be positive. Infectious Diseases is asked to comment on further
antimicrobial therapy.
At the present time she denies any pain. She denies having any fevers or chills. She denies any cough. She denies any abdominal discomfort. Further review of systems is limited.
Past History
Additional Past Medical History:
HTN
CKD
A-fib
Schizoaffective disorder
Bipolar disease
Past Surgical History: None
Allergy History:
divalproex sodium [From Depakote] Allergy (Verified 08/11/24 10:33)
Unknown
lithium Allergy (Verified 08/11/24 10:33)
Unknown
Medications Reviewed: Yes
Current Antibiotics:
Vancomycin
Social History
Tobacco: Non-Smoker
Alcohol: None
Drug: None
Personal: Single
Living: Skilled Nursing
Family History
Family History: Not Pertinent
Review of Systems
Vital Signs
Temp Pulse Resp BP Pulse Ox
99.1 F 74 18 104/65 95
08/12/24 11:39 08/12/24 11:39 08/12/24 11:39 08/12/24 11:39 08/12/24 11:39
Physical Exam
Physical Exam
Constitutional: No Acute Distress, Comfortable, Chronically Ill and Non-toxic
Eyes: No Conjunctival Hemorrhage and Sclera Anicteric
Oral: No Thrush and No Ulcers
Cardiovascular: Regular Rate and S1/S2; Negative S3/S4
Pulmonary: Clear; Negative Wheezes, Rales or Rhonchi
Gastrointestinal: Soft, Non Tender, Non Distended, Normal Bowel Sounds, No Rebound and No Guarding
Extremities: Negative Edema, Clubbing, Cyanosis or Erythema
Neurological: Awake and Alert
Psychological: Calm and Confused
Lab / Diagnostic Study Results
08/12/24 05:17
Abs Immat Gran (auto) 0.0 10^3/uL (0-0.05) 08/11/24 10:05
Absolute Neuts (auto) 5.9 10^3/uL (1.4-6.5) 08/11/24 10:05
Absolute Lymphs (auto) 0.8 10^3/uL (1.2-3.4) L 08/11/24 10:05
Absolute Monos (auto) 0.9 10^3/uL (0.1-0.6) H 08/11/24 10:05
Absolute Basos (auto) 0.0 10^3/uL (0-0.2) 08/11/24 10:05
Immature Gran % 0.5 % (0-0.5) 08/11/24 10:05
Neutrophils % 77.6 % (42.2-75.2) H 08/11/24 10:05
Lymphocytes % 9.9 % (20.5-51.1) L 08/11/24 10:05
Monocytes % 11.1 % (1.7-9.3) H 08/11/24 10:05
Eosinophils % 0.5 % (0-6) 08/11/24 10:05
Basophils % 0.4 % (0-2) 08/11/24 10:05
Lactic Acid 1.2 mmol/L (0.7-2.0) 08/11/24 10:05
Ur Squamous Epith Cells 3-5 /LPF (Few) 08/11/24 10:05
Microbiology Results
Micro:
08/11/24 10:07 Blood Culture - Preliminary
Blood/Venous Positive culture in progress
Gram Stain - Preliminary
08/11/24 10:05 Blood Culture - Preliminary
Blood/Venous Positive culture in progress
Gram Stain - Preliminary
08/12/24 05:17 MRSA Screen - Pending
Nose
08/11/24 10:05 Influenza Types A & B (OLGA) - Final
Nasal Swab Negative for Influenza A & B, NAAT
Negative results must be combined with clinical observations
and patient history.
Nucleic Acid Amplification test (NAAT)performed on the
[employer] platform.
Imaging:
08/12/2024 ECHO (TTE): Normal LV size and function. EF approximately 55%. Mild concentric left ventricular hypertrophy. No significant valvular pathology noted. Please see full dictation for additional detail.
08/12/2024 Renal ultrasound: Findings are suggestive of bilateral renal disease although no aggressive renal mass demonstrated. No hydronephrosis noted.
Assessment / Plan
Bacteremia with GPC's (aerobic bottles of 2 sets)
Change in mental status; suspect TME
Normal white count with left shift
Hypernatremia
REINA on CKD
HTN
CKD
A-fib
Schizoaffective disorder
Bipolar disease
Recommendations:
Continue with empiric vancomycin for the present. Follow levels closely to prevent further nephrotoxicity.
Await further culture data to guide further antimicrobial selection/de-escalation.
Monitor white count and temperature curve.
Monitor creatinine and Est CrCl.
Further recommendations as additional data is returned.
[2024-08-12 16:06] LABS: Blood Urea Nitrogen 77 mg/dl (7-17); Calcium 9.4 mg/dl (8.4-10.2); Carbon Dioxide 20 mmol/L (22-30); Chloride 119 mmol/L (98-107); Glucose 131 mg/dl (70-99); Potassium 4.3 mmol/L (3.5-5.1); Sodium 150 mmol/L (135-145); eGFR 8.31
[2024-08-12 17:05] LABS: Urine Sodium 65 mmol/L (30-90)
[2024-08-12] MEDS: SODIUM BICARBONATE IV (21:59)
--- NOTE | 2024-08-12 22:30 | PTCARENOTE ---
Pt received from to [facility].
[2024-08-12] MEDS: REMERON 7.5 MG PO (22:41)
[2024-08-12] MEDS: COLACE 200 MG PO (22:42)
[2024-08-12] MEDS: SENOKOT 17.2 MG PO (22:42)
[2024-08-13] VITALS (8 sets, daily range): BP systolic 100–154; BP diastolic 60–98; PULSE 69; O2SAT 96
[2024-08-13 07:46] LABS: Hematocrit 34.3 % (37.0-47.0); Hemoglobin 10.5 g/dL (12.0-16.0); Mean Corp Hgb Conc. 30.6 g/dL (33.0-37.0); Mean Corpuscular Hgb 33.7 pg (27.0-31.0); Mean Corpuscular Volume 109.9 fL (81.0-99.0); Mean Platelet Volume 9.7 fL (7.4-10.4); Platelet Count 176 10^3/uL (130-400); Red Blood Cell Count 3.12 10^6/uL (4.20-5.40); Red Cell Dist. Width 18.4 % (11.5-14.5); White Blood Cell Count 5.5 10^3/uL (4.8-10.8)
[2024-08-13 08:17] LABS: Blood Urea Nitrogen 70 mg/dl (7-17); Calcium 9.8 mg/dl (8.4-10.2); Carbon Dioxide 24 mmol/L (22-30); Chloride 117 mmol/L (98-107); Glucose 104 mg/dl (70-99); Sodium 152 mmol/L (135-145)
[2024-08-13 08:20] LABS: Vancomycin Random 17.8 ug/ml
--- NOTE | 2024-08-13 10:01 | W.PN.NEPH.PH ---
Today's Communication / Plan
-
Hypotonic IV fluids
Assessment/Plan
-
IMP:
Acute TME
GPC bacteremia
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
Non gap Metabolic Acidosis
Hypernatremia
Mild hypercalcemia
Anemia-macrocytic
Hypotension on admit
Benign Hypertension
Paroxysmal Atrial Fibrillation
Chronic Macrocytic Anemia
Chronic Impaired Cognition
Bipolar Disorder
Schizoaffective Disorder
SZDO?
h/o DVT, PE -factor V leiden
Plan:
A/w AMS from [place]
REINA-last cr was at 3.3 in Jul 2023, no recent baseline known
Continue hypotonic fluids, 1/4ns
no emergent indication of HD however high risk of needing if no improvement
High risk situation
Previously Dr. Patel with
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
-
-
Date of Service: August 13, 2024
CC / HPI / ROS
-
Chief Complaint:
REINA
History of Present Illness:
REINA/Cr down to 5.1
Sodium remains elevated at 152
Acidosis corrected
BP Stable
Review of Systems:
No chest pain or shortness of breath
Labs
-
Labs:
WBC 5.5 10^3/uL (4.8-10.8) 08/13/24 07:29
RBC 3.12 10^6/uL (4.20-5.40) L 08/13/24 07:29
Hgb 10.5 g/dL (12.0-16.0) L 08/13/24 07:29
Hct 34.3 % (37.0-47.0) L 08/13/24 07:29
Plt Count 176 10^3/uL (130-400) 08/13/24 07:29
Sodium 152 mmol/L (135-145) H 08/13/24 07:29
Potassium 4.0 mmol/L (3.5-5.1) 08/13/24 07:29
Chloride 117 mmol/L (98-107) H 08/13/24 07:29
Carbon Dioxide 24 mmol/L (22-30) 08/13/24 07:29
BUN 70 mg/dl (7-17) H 08/13/24 07:29
Creatinine 5.1 mg/dL (0.6-1.0) H* 08/13/24 07:29
eGFR 8.90 08/13/24 07:29
Glucose 104 mg/dl (70-99) H 08/13/24 07:29
Calcium 9.8 mg/dl (8.4-10.2) 08/13/24 07:29
Albumin 3.3 g/dl (3.5-5.0) L 08/12/24 05:17
Physical Exam
-
Vital Signs:
Vital Signs
Temp Pulse Resp BP Pulse Ox
97.9 F 66 20 146/88 97
08/13/24 07:55 08/13/24 07:55 08/13/24 07:55 08/13/24 07:55 08/13/24 07:55
Cardiovascular:: Regular rate and rhythm
Respiratory:: Bilateral: Coarse
Lung Excursion:: Normal
Abdomen:: Nontender and Soft
Bowel Sounds:: Normal
Extremity Edema:: None: Bilateral:
--- NOTE | 2024-08-13 10:02 | PHA.VAN.FU ---
Vancomycin Assessment / Plan
- Assessment
Renal Function: SCR Decreasing
WBC's are: WNL
In the past 24 hrs, patient has been: Afebrile
- Dosing Plan
Dosing by Level: Hold off on dosing today (R=17.8 on 08.13)
- Monitoring Plan
Random Level: 1.31 @ 0600
- Follow Up
Pharmacy will continue to follow.
Vancomycin Follow UP
- -
Patient Age: 64
Patient Sex: Female
Vancomycin Day #: 3
Indication: Bacteremia
Requesting Provider: Yfn Zuleta
Pertinent Antimicrobial Allergies:
none
Height / Weight:
Actual Weight 44.497 kg
Pertinent Past Medical History: REINA on CKD,
- Vital Signs / Lab Results
Temp Pulse Resp BP Pulse Ox
97.9 F 66 20 146/88 97
08/13/24 07:55 08/13/24 07:55 08/13/24 07:55 08/13/24 07:55 08/13/24 07:55
Lab Results - Hematology
08/11/24 08/12/24 08/13/24
10:05 05:17 07:29
WBC 7.6 6.2 5.5
Lab Results - Chemistry
08/11/24 08/12/24 08/12/24
10:05 05:17 15:31
BUN 90 H 86 H 77 H
Creatinine 6.9 H* 6.1 H* 5.4 H*
Albumin 4.0 3.3 L
08/13/24
07:29
BUN 70 H
Creatinine 5.1 H*
Albumin
08/11/24 08/11/24
10:00 10:05
Lactic Acid Cancelled 1.2
Microbiology Results
08/11/24 10:07 Blood Culture - Preliminary
Blood/Venous Streptococcus species
Gram Stain - Preliminary
08/11/24 10:05 Blood Culture - Preliminary
Blood/Venous Streptococcus species
Gram Stain - Preliminary
08/12/24 05:17 MRSA Screen - Final
Nose Staph aureus MRSA
08/11/24 10:05 Influenza Types A & B (OLGA) - Final
Nasal Swab Negative for Influenza A & B, NAAT
Negative results must be combined with clinical observations
and patient history.
Nucleic Acid Amplification test (NAAT)performed on the
[employer] platform.
Therapeutic Drug Monitoring
Random Vancomycin 17.8 ug/ml 08/13/24 07:29
[2024-08-13] MEDS: TEGRETOL CHEWABLE 300 MG PO ×2 (10:10→20:15)
[2024-08-13] MEDS: SEROQUEL 150 MG PO ×2 (10:11→20:16)
[2024-08-13] MEDS: FEOSOL 325 MG PO (10:11)
[2024-08-13] MEDS: PROTONIX 40 MG PO (10:11)
[2024-08-13] MEDS: KLONOPIN 1 MG PO ×3 (10:11→21:21)
[2024-08-13] MEDS: LIPITOR 40 MG PO (10:11)
[2024-08-13] MEDS: VITAMIN C 500 MG PO (10:11)
[2024-08-13] MEDS: ELIQUIS 2.5 MG PO ×2 (10:11→20:15)
[2024-08-13] MEDS: SYMMETREL 100 MG PO ×2 (10:11→20:13)
[2024-08-13] MEDS: TOPROL XL 25 MG PO (10:11)
[2024-08-13] MEDS: NEPHROCAP 1 CAPSULE PO (10:11)
--- NOTE | 2024-08-13 10:11 | W.PN.HOSP.TC ---
Today's Communication/Plan
-
continue IVF per Renal. repeat labs 4pm
continue Vanco, follow ID reccs
Assessment / Plan
Assessment / Plan
Assessment:
Acute TME
Strep bacteremia
- UA/CXR clear
- Bcx x 2 growing strep - unsure if real vs contaminant with both sets drawn 2 minutes apart - continue empiric IV Vanco (requires intensive monitoring of levels)
- Echo without evidence of endocarditis
- ID following
REINA on CKD IV
Dehydration with acute hypernatremia, hypercalcemia
acute Metabolic Acidosis
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
- continue IVF, now hypotonic 1/4 NS; repeat labs afternoon
- follow BMPs
- check bladder scans
- nephrology following
- detention poor candidate for HD; agrees per discussion with Renal
Benign Hypertension
Paroxysmal Atrial Fibrillation
- continue Eliquis
- continue Metoprolol
Chronic Macrocytic Anemia
- Hb stable around 9.5 to 10 range
Chronic Impaired Cognition (likely Dementia)
Bipolar Disorder
Schizoaffective Disorder with hx of psychosis
- continue Amantadine/Carbamazepine/Klonopin/Remeron/Seroquel
Hx of Factor V Leiden (hx of DVTs)
- maintained now on Eliquis; previously Coumadin
GERD on PPI
Dysphagia
- on IDDSI 5 diet
DVT ppx:
Code: DNR/DNI
Anticipated Discharge: > 48 hours
Subjective/Interval History
-
Date of Service: August 13, 2024
no new complaints at present
Objective Data
-
Labs:
Laboratory Results
08/13/24 08/13/24
07:29 16:00
WBC 5.5
Hgb 10.5 L
Hct 34.3 L
Plt Count 176
Sodium 152 H Pending
Potassium 4.0 Pending
Chloride 117 H Pending
Carbon Dioxide 24 Pending
BUN 70 H Pending
Creatinine 5.1 H* Pending
Glucose 104 H Pending
Calcium 9.8 Pending
Vital Signs:
Vital Signs
Temp Pulse Resp BP Pulse Ox
97.9 F 66 20 146/88 97
08/13/24 07:55 08/13/24 07:55 08/13/24 07:55 08/13/24 07:55 08/13/24 07:55
I&O
08/12/24 08/13/24 08/14/24
06:59 06:59 06:59
Intake Total 1080 / 1080
Output Total 450 / 450 1150 / 1150
Balance 630 / 630 -1150 / -1150
Physical Exam
-
General: No Apparent Distress
HEENT: Normocephalic and Atraumatic
Respiratory: Negative Wheezes
Cardiac: Regular Rhythm and S1/S2
GI: Soft and Nontender
Musculoskeletal: No Edema
Neuro: AO x 3
Hematologic / Lymphatic: No Lymphadenopathy
Psych: Calm
Data Reviewed
-
Total Time Spent with Patient (in minutes): 51
Labs: Labs Reviewed by me
[2024-08-13] MEDS: SODIUM CHLORIDE 1009.625 MEQ IV ×2 (10:58→21:25)
[2024-08-13] MEDS: SODIUM BICARBONATE IV (11:03)
--- NOTE | 2024-08-13 12:39 | W.PN.ID1 ---
Date of Service
Date of Service: August 13, 2024
Today's Communication
Continue antibiotics. Narrow to cefazolin.
Assessment / Plan
Bacteremia with Strep spp. (aerobic bottles of each set from ER)
Change in mental status; suspect TME
Normal white count with left shift
Hypernatremia
REINA on CKD
HTN
CKD
A-fib
Schizoaffective disorder
Bipolar disease
Recommendations:
Strep species recovered from blood cultures.
Narrow antibiotics to cefazolin 1 gm IV q 24h; dosed for renal insufficiency (currentl est CrCl ~ 7)
Monitor white count and temperature curve.
Monitor creatinine and Est CrCl.
Chief Complaint
-: Bacteremia
Subjective / Review of Systems
Patient seen and examined. Reports no pain at present. No recorded fevers or chills since original presentation on 08/11.
Vital Signs / Physical Exam
Vital Signs
Vital Signs
Temp Pulse Resp BP Pulse Ox
97.6 F 76 22 109/60 99
08/13/24 11:14 08/13/24 11:14 08/13/24 11:14 08/13/24 11:14 08/13/24 11:14
Physical Exam
Constitutional: Comfortable and Chronically Ill
Eyes: No Conjunctival Hemorrhage and Sclera Anicteric
Cardiovascular: S1/S2; Negative S3/S4 or Murmur
Pulmonary: Non Labored
Gastrointestinal: Soft, Non Tender, Normal Bowel Sounds, No Rebound and No Guarding
Neurological: Awake
Psychological: Calm
Objective Data
Lab Data
Lab Results
08/13/24 07:29
Lactic Acid 1.2 mmol/L (0.7-2.0) 08/11/24 10:05
Total Bilirubin 0.4 mg/dl (0.2-1.3) 08/12/24 05:17
AST 29 U/L (14-36) 08/12/24 05:17
ALT 33 U/L (0-35) 08/12/24 05:17
Alkaline Phosphatase 83 U/L (38-126) 08/12/24 05:17
Most recent labs reviewed.
Micro Results:
08/11/24 10:07 Blood Culture - Preliminary
Blood/Venous Streptococcus species
Gram Stain - Preliminary
08/11/24 10:05 Blood Culture - Preliminary
Blood/Venous Streptococcus species
Gram Stain - Preliminary
08/12/24 05:17 MRSA Screen - Final
Nose Staph aureus MRSA
08/11/24 10:05 Influenza Types A & B (OLGA) - Final
Nasal Swab Negative for Influenza A & B, NAAT
Negative results must be combined with clinical observations
and patient history.
Nucleic Acid Amplification test (NAAT)performed on the
[employer] platform.
Imaging:
08/12/2024 ECHO (TTE): Normal LV size and function. EF approximately 55%. Mild concentric left ventricular hypertrophy. No significant valvular pathology noted. Please see full dictation for additional detail.
08/12/2024 Renal ultrasound: Findings are suggestive of bilateral renal disease although no aggressive renal mass demonstrated. No hydronephrosis noted.
[2024-08-13] MEDS: ANCEF 5 IV (13:57)
--- NOTE | 2024-08-13 16:30 | CM ---
servicing manager reviewed patient's chart and met with patient and spoke with admissions at [facility], patient requires contact guard for safety at facility with adl's and ambulation. They would like patient to use a walker. Patient's spouse lives
in the community and per patient he plans on visiting her tomorrow.
Patient has MA bedhold at [facility]
PCP: Dr. Kirk Jeronimo
Pharmacy: [facility]
Plan; Patient to return to [facility] when stable
[facility]
Report [phone]
--- NOTE | 2024-08-13 16:37 | PN.CDI ---
CDI
- -
CDI:
Physician Documentation Request
Admit Date: 08/11/24 19:48
Dear Doctor Yfn,
Please review the following and provide your response in the progress notes.
Clinical Indicators:
Pt admitted with REINA on CKD 4 /Found to have strep bacteremia/TME/ Hypernatremia
Documented per ED, ' Noted to have temperature here 100.9. She is hypotensive on arrival. Concern for possible sepsis. ...Will give 2 L of fluid. Vancomycin and Zosyn ordered prophylactically with blood cultures ....Sepsis, REINA (acute kidney
injury)...'
On admission Tmax 100.9, HR 109, Respirations 27
ID consult, ' Normal white count with left shift...'
Pt now on Cefazolin Q24 IV for strep bacteremia
Please clarify which of the following most accurately describes the status of the patient's infection:
Sepsis -POA with unknown source -still being monitored /treated
- Systemic manifestations of infection, with 2 or more SIRS criteria which include:
- Fever >100.4 degrees F or hypothermia < 96.8 degrees F
- Leukocytosis - WBC > 12,000 or leukopenia - WBC < 4,000 or > 10% bands
- Tachycardia > 90 beats per minute
- Tachypnea - RR > 20 breaths per minute or PaCO2 , 32mmHg
Source: Merck Manual 2013
Sepsis Ruled out
Other ( please specify)
Use of terms such as suspected, likely, concern for, or probable (associated with a specific diagnosis that is being evaluated, monitored, or treated as if it exists) are acceptable and can be coded in the inpatient setting, when documented at the
time of discharge.
Thank you,
Sofía Rosas RN
CDI Specialist
[place] [facility]
Please use your independent medical judgment in providing your response.
--- NOTE | 2024-08-13 16:41 | PN.CDI ---
CDI
- -
CDI:
Physician Documentation Request
Admit Date: 08/11/24 19:48
Dear Doctor,
Please review the following and provide your response in the progress notes.
Clinical Indicators:
Pt admitted with REINA on CKD 4 /Found to have strep bacteremia/TME/ Hypernatremia
Documented per nephrology consult, ' She was hypotensive in 70s in ER now improved with IVF. 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
08/11/24 08/12/24 08/12/24
10:05 05:17 15:31
Creatinine 6.9 H* 6.1 H* 5.4 H*
08/13/24
07:29
Creatinine 5.1 H*
Clarify which of the following accurately represents the patient's renal status:
REINA with ATN on CKD 4
REINA with CKD 4 only
Other ( please specify)
Use of terms such as suspected, likely, concern for, or probable (associated with a specific diagnosis that is being evaluated, monitored, or treated as if it exists) are acceptable and can be coded in the inpatient setting, when documented at the
time of discharge.
Thank you,
Sofía Rosas RN
CDI Specialist
[place] [facility]
Please use your independent medical judgment in providing your response.
*Source: Kidney Disease: Improving Global Outcomes (KDIGO) 2012
[2024-08-13 17:19] LABS: Blood Urea Nitrogen 70 mg/dl (7-17); Calcium 9.9 mg/dl (8.4-10.2); Carbon Dioxide 22 mmol/L (22-30); Chloride 113 mmol/L (98-107); Estimated Creatinine Clearance 7 ml/min; Glucose 117 mg/dl (70-99); Potassium 4.3 mmol/L (3.5-5.1); Sodium 145 mmol/L (135-145); eGFR 9.82
--- NOTE | 2024-08-13 18:06 | PTCARENOTE ---
Patient received to room 426 awake and alert. Some rambling conversation. Tearful at times . Denies pain or discomfort.
[2024-08-13] MEDS: TYLENOL 650 MG PO (20:12)
[2024-08-13] MEDS: SENOKOT 17.2 MG PO (21:21)
[2024-08-13] MEDS: REMERON 7.5 MG PO (21:21)
[2024-08-13] MEDS: COLACE 200 MG PO (22:36)
[2024-08-14 03:52] VITALS: BP 130/94
[2024-08-14 07:00] VITALS: BP 139/99
[2024-08-14 08:10] LABS: Hematocrit 31.3 % (37.0-47.0); Hemoglobin 9.8 g/dL (12.0-16.0); Mean Corp Hgb Conc. 31.3 g/dL (33.0-37.0); Mean Corpuscular Hgb 34.6 pg (27.0-31.0); Mean Corpuscular Volume 110.6 fL (81.0-99.0); Mean Platelet Volume 10.4 fL (7.4-10.4); Platelet Count 141 10^3/uL (130-400); Red Blood Cell Count 2.83 10^6/uL (4.20-5.40); Red Cell Dist. Width 18.7 % (11.5-14.5); White Blood Cell Count 4.8 10^3/uL (4.8-10.8)
[2024-08-14 08:48] LABS: Blood Urea Nitrogen 70 mg/dl (7-17); Calcium 9.2 mg/dl (8.4-10.2); Carbon Dioxide 20 mmol/L (22-30); Chloride 114 mmol/L (98-107); Estimated Creatinine Clearance 8 ml/min; Glucose 82 mg/dl (70-99); Potassium 4.5 mmol/L (3.5-5.1); Sodium 144 mmol/L (135-145); eGFR 10.93
--- NOTE | 2024-08-14 08:57 | W.PN.HOSP.TC ---
Today's Communication/Plan
-
continue IVF per Nephrology
continue IV abx per ID
eventual colonoscopy outpatient
Assessment / Plan
Assessment / Plan
Assessment:
Acute TME
Strep bovis bacteremia with Sepsis POA (fever, tachypnea, tachycardia)
- UA/CXR clear
- continue Ancef, follow repeat cultures
- Echo without evidence of endocarditis
- ID following
- will need colonoscopy likely outpatient
REINA (perhaps ATN) on CKD IV (reported Cr. baseline around 3.6 per facility)
Dehydration with acute hypernatremia, hypercalcemia
acute Metabolic Acidosis
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
- continue IVF, now hypotonic 1/4 NS
- follow BMPs
- follow bladder scans
- nephrology following
- manager sourcing poor candidate for HD; agrees per discussion with Renal
Benign Hypertension
Paroxysmal Atrial Fibrillation
- continue Eliquis
- continue Metoprolol
Chronic Macrocytic Anemia
- Hb stable around 9.5 to 10 range
Chronic Impaired Cognition (likely Dementia)
Bipolar Disorder
Schizoaffective Disorder with hx of psychosis
- continue Amantadine/Carbamazepine/Klonopin/Remeron/Seroquel
Hx of Factor V Leiden (hx of DVTs)
- maintained now on Eliquis; previously Coumadin
GERD on PPI
Dysphagia
- on IDDSI 5 diet
DVT ppx:
Code: DNR/DNI
Anticipated Discharge: > 48 hours
Subjective/Interval History
-
Date of Service: August 14, 2024
no complaints at present
Objective Data
-
Labs:
Laboratory Results
08/14/24
07:50
WBC 4.8
Hgb 9.8 L
Hct 31.3 L
Plt Count 141
Sodium 144
Potassium 4.5
Chloride 114 H
Carbon Dioxide 20 L
BUN 70 H
Creatinine 4.3 H*
Glucose 82
Calcium 9.2
Vital Signs:
Vital Signs
Temp Pulse Resp BP Pulse Ox
97.5 F 71 20 130/94 100
08/14/24 03:52 08/14/24 03:52 08/14/24 03:52 08/14/24 03:52 08/14/24 03:52
I&O
08/13/24 08/14/24 08/15/24
06:59 06:59 06:59
Intake Total 730 / 730
Output Total 1150 / 1150
Balance -1150 / -1150 730 / 730
Physical Exam
-
General: No Apparent Distress
HEENT: Normocephalic and Atraumatic
Respiratory: Negative Wheezes
Cardiac: Regular Rhythm and S1/S2
GI: Soft
Genito-urinary: No Costovertebral Tender
Musculoskeletal: No Edema
Neuro: AO x 3
Hematologic / Lymphatic: No Lymphadenopathy
Psych: Calm
Data Reviewed
-
Total Time Spent with Patient (in minutes): 44
Labs: Labs Reviewed by me
[2024-08-14] MEDS: PROTONIX 40 MG PO (09:00)
[2024-08-14] MEDS: NEPHROCAP 1 CAPSULE PO (09:00)
[2024-08-14] MEDS: SYMMETREL 100 MG PO ×2 (09:00→20:45)
[2024-08-14] MEDS: VITAMIN C 500 MG PO (09:00)
[2024-08-14] MEDS: KLONOPIN 1 MG PO ×3 (09:00→22:06)
[2024-08-14] MEDS: FEOSOL 325 MG PO (09:00)
[2024-08-14] MEDS: TEGRETOL CHEWABLE 300 MG PO ×2 (09:00→20:45)
[2024-08-14] MEDS: SEROQUEL 150 MG PO ×2 (09:01→20:45)
[2024-08-14] MEDS: TOPROL XL 25 MG PO (09:06)
[2024-08-14] MEDS: ELIQUIS 2.5 MG PO ×2 (09:06→20:45)
[2024-08-14] MEDS: LIPITOR 40 MG PO (09:06)
[2024-08-14 12:34] VITALS: BP 112/77
--- NOTE | 2024-08-14 13:27 | W.PN.ID1 ---
Date of Service
Date of Service: August 14, 2024
Today's Communication
S bovis, associated with GI malignancies and endocarditis
TTE 08/12 normal EF without valvular lesions
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
Start ceftriaxone 2 gm iv q24 hr plan 6 week course
would observe patient through the weekend and pending course consider invasive procedures (NELLI, EGD/colonoscopy) as well as eventual MRI abdomen (her baseline crcl is 15, would not be able to use IV contrast for CT)
Assessment / Plan
S bovis Bacteremia
Possible Endocarditis
Change in mental status; suspect TME
Normal white count with left shift
Hypernatremia
REINA on CKD
HTN
CKD
A-fib
Schizoaffective disorder
Bipolar disease
Recommendations:
S bovis, associated with GI malignancies and endocarditis
TTE 08/12 normal EF without valvular lesions
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
Start ceftriaxone 2 gm iv q24 hr plan 6 week course
would observe patient through the weekend and pending course consider invasive procedures (NELLI, EGD/colonoscopy) as well as eventual MRI abdomen (her baseline crcl is 15, would not be able to use IV contrast for CT)
Monitor white count and temperature curve.
Monitor creatinine and Est CrCl.
prognosis guarded
Chief Complaint
-: Bacteremia (S bovis)
Subjective / Review of Systems
afebrile
bp stable
considered not an ideal candidate for alf HD
tangential on my exam jumping topics from water to milk to insurance
Vital Signs / Physical Exam
Vital Signs
Vital Signs
Temp Pulse Resp BP Pulse Ox
98.3 F 77 22 112/77 100
08/14/24 12:34 08/14/24 12:34 08/14/24 12:34 08/14/24 12:34 08/14/24 12:34
Physical Exam
Constitutional: No Acute Distress
Cardiovascular: Regular Rate and S1/S2; Negative Murmur or Rub
Pulmonary: Clear and Symmetric; Negative Wheezes or Rales
Gastrointestinal: Soft, Non Tender, Non Distended and Normal Bowel Sounds
Skin: Warm and Dry; Negative Rash or Jaundice
Objective Data
Lab Data
Lab Results
08/14/24 07:50
08/14/24 07:50
Estimated Creat Clear 8 ml/min 08/14/24 07:50
Lactic Acid 1.2 mmol/L (0.7-2.0) 08/11/24 10:05
Total Bilirubin 0.4 mg/dl (0.2-1.3) 08/12/24 05:17
AST 29 U/L (14-36) 08/12/24 05:17
ALT 33 U/L (0-35) 08/12/24 05:17
Alkaline Phosphatase 83 U/L (38-126) 08/12/24 05:17
Most recent labs reviewed.
Micro Results:
08/11/24 10:05 Blood Culture - Preliminary
Blood/Venous Streptococcus bovis
Gram Stain - Preliminary
08/11/24 10:07 Blood Culture - Preliminary
Blood/Venous Streptococcus bovis
Gram Stain - Preliminary
08/13/24 16:50 Blood Culture - Pending
Blood/Venous
08/13/24 13:34 Blood Culture - Pending
Blood/Venous
08/12/24 05:17 MRSA Screen - Final
Nose Staph aureus MRSA
08/11/24 10:05 Influenza Types A & B (OLGA) - Final
Nasal Swab Negative for Influenza A & B, NAAT
Negative results must be combined with clinical observations
and patient history.
Nucleic Acid Amplification test (NAAT)performed on the
[employer] platform.
Imaging:
08/12/2024 ECHO (TTE): Normal LV size and function. EF approximately 55%. Mild concentric left ventricular hypertrophy. No significant valvular pathology noted. Please see full dictation for additional detail.
08/12/2024 Renal ultrasound: Findings are suggestive of bilateral renal disease although no aggressive renal mass demonstrated. No hydronephrosis noted.
--- NOTE | 2024-08-14 14:30 | CM ---
CM reviewed chart, reviewed with Hospitalist, patient not stable for discharge at this time. Patient remains on IV antibiotics, continue IVF. CM will continue to follow for all discharge planning needs.
Plan; Patient to return to [facility] when stable
[facility]
Report [phone]
[2024-08-14] MEDS: ROCEPHIN 2000 MG IV (14:34)
[2024-08-14] MEDS: STERILE WATER FOR INJECTION 20 ML IV (14:34)
[2024-08-14 15:00] VITALS: BP 118/76
--- NOTE | 2024-08-14 17:27 | W.PN.NEPH.PH ---
Today's Communication / Plan
-
follow labs
encourage po intake
Assessment/Plan
-
IMP:
Acute TME
GPC bacteremia
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
Non gap Metabolic Acidosis
Hypernatremia
Mild hypercalcemia
Anemia-macrocytic
Hypotension on admit
Benign Hypertension
Paroxysmal Atrial Fibrillation
Chronic Macrocytic Anemia
Chronic Impaired Cognition
Bipolar Disorder
Schizoaffective Disorder
SZDO?
h/o DVT, PE -factor V leiden
Plan:
A/w [facility] from [facility]
REINA-last cr was at 3.3 in Jul 2023, 3.6 at [place]
cr improving to 4.3, UOP not measured
hypernatremia is better with hypotonic fluids
wean off IVF tonight
stable met acidosis
no emergent indication of HD however high risk of needing if no improvement in future
High risk situation
Previously Dr. Patel spoke with and felt
over all she likely not an ideal candidate for long term HD this was reviewed with on phone in detail and he agrees -likely not pursue COMMUNICATIONS ADMINISTRATOR
-
-
Date of Service: August 14, 2024
CC / HPI / ROS
-
Chief Complaint:
REINA
History of Present Illness:
REINA/Cr down to 4.3
Sodium better at 144
Acidosis stable
BP Stable
hb low 9.8
Review of Systems:
No chest pain or shortness of breath
difficult to understand speech
Labs
-
Labs:
WBC 4.8 10^3/uL (4.8-10.8) 08/14/24 07:50
RBC 2.83 10^6/uL (4.20-5.40) L 08/14/24 07:50
Hgb 9.8 g/dL (12.0-16.0) L 08/14/24 07:50
Hct 31.3 % (37.0-47.0) L 08/14/24 07:50
Plt Count 141 10^3/uL (130-400) 08/14/24 07:50
Sodium 144 mmol/L (135-145) 08/14/24 07:50
Potassium 4.5 mmol/L (3.5-5.1) 08/14/24 07:50
Chloride 114 mmol/L (98-107) H 08/14/24 07:50
Carbon Dioxide 20 mmol/L (22-30) L 08/14/24 07:50
BUN 70 mg/dl (7-17) H 08/14/24 07:50
Creatinine 4.3 mg/dL (0.6-1.0) H* 08/14/24 07:50
eGFR 10.93 08/14/24 07:50
Glucose 82 mg/dl (70-99) 08/14/24 07:50
Calcium 9.2 mg/dl (8.4-10.2) 08/14/24 07:50
Albumin 3.3 g/dl (3.5-5.0) L 08/12/24 05:17
Physical Exam
-
Vital Signs:
Vital Signs
Temp Pulse Resp BP Pulse Ox
98.1 F 78 18 118/76 95
08/14/24 15:00 08/14/24 15:00 08/14/24 15:00 08/14/24 15:00 08/14/24 15:00
Cardiovascular:: Regular rate and rhythm
Respiratory:: Bilateral: CTA
Lung Excursion:: Normal
Abdomen:: Nontender and Soft
Extremity Edema:: None: Bilateral:
Rodríguez Catheter: No
[2024-08-14 20:03] VITALS: BP 110/65
[2024-08-14] MEDS: COLACE 200 MG PO (22:06)
[2024-08-14] MEDS: SENOKOT 17.2 MG PO (22:07)
[2024-08-14] MEDS: REMERON 7.5 MG PO (22:07)
[2024-08-14 23:40] VITALS: BP 102/65
[2024-08-15 03:15] VITALS: BP 104/65
[2024-08-15 07:50] VITALS: BP 107/88
[2024-08-15 08:55] LABS: Hematocrit 37.1 % (37.0-47.0); Hemoglobin 11.4 g/dL (12.0-16.0); Mean Corp Hgb Conc. 30.7 g/dL (33.0-37.0); Mean Corpuscular Hgb 34.4 pg (27.0-31.0); Mean Corpuscular Volume 112.1 fL (81.0-99.0); Mean Platelet Volume 10.3 fL (7.4-10.4); Platelet Count 174 10^3/uL (130-400); Red Blood Cell Count 3.31 10^6/uL (4.20-5.40); Red Cell Dist. Width 19.9 % (11.5-14.5); White Blood Cell Count 6.1 10^3/uL (4.8-10.8)
[2024-08-15 09:13] LABS: Blood Urea Nitrogen 71 mg/dl (7-17); Calcium 10.8 mg/dl (8.4-10.2); Carbon Dioxide 18 mmol/L (22-30); Chloride 120 mmol/L (98-107); Estimated Creatinine Clearance 8 ml/min; Glucose 93 mg/dl (70-99); Potassium 4.5 mmol/L (3.5-5.1); Sodium 152 mmol/L (135-145); eGFR 10.63
[2024-08-15] MEDS: TEGRETOL CHEWABLE 300 MG PO ×2 (10:20→20:38)
[2024-08-15] MEDS: VITAMIN C 500 MG PO (10:22)
[2024-08-15] MEDS: KLONOPIN 1 MG PO ×3 (10:22→21:59)
[2024-08-15] MEDS: SEROQUEL 150 MG PO ×2 (10:23→20:38)
[2024-08-15] MEDS: SYMMETREL 100 MG PO ×2 (10:29→20:38)
[2024-08-15] MEDS: TOPROL XL 25 MG PO (10:29)
[2024-08-15] MEDS: PROTONIX 40 MG PO (10:29)
--- NOTE | 2024-08-15 10:29 | W.PN.HOSP.TC ---
Today's Communication/Plan
-
follow ID recs, continue Rocephin
follow Nephrology recs for hypernatremia/ongoing REINA
Assessment / Plan
Assessment / Plan
Assessment:
Acute TME
Strep bovis bacteremia with Sepsis POA (fever, tachypnea, tachycardia)
- UA/CXR clear
- continue Ceftriaxone per ID x 6 weeks
- 2D echo without evidence of IE. NELLI to be considered
- given associated with GI malignancy, consider EGD/Colonoscopy and Abd MRI
REINA (perhaps ATN) on CKD IV (reported Cr. baseline around 3.6 per facility)
Dehydration with acute hypernatremia, hypercalcemia
acute Metabolic Acidosis
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
- s/p IVF, with rapid increase in hypernatremia and no further improvement in Creat - will d/w Nephrology on further IVF
- follow BMPs
- follow bladder scans
- chcf poor candidate for HD; agrees per discussion with Renal
Benign Hypertension
Paroxysmal Atrial Fibrillation
- continue Eliquis
- continue Metoprolol
Chronic Macrocytic Anemia
- Hb stable around 9.5 to 10 range
Chronic Impaired Cognition (likely Dementia)
Bipolar Disorder
Schizoaffective Disorder with hx of psychosis
- continue Amantadine/Carbamazepine/Klonopin/Remeron/Seroquel
Hx of Factor V Leiden (hx of DVTs)
- maintained now on Eliquis; previously Coumadin
GERD on PPI
Dysphagia
- on IDDSI 5 diet
DVT ppx:
Code: DNR/DNI
Anticipated Discharge: > 48 hours
Subjective/Interval History
-
Date of Service: August 15, 2024
one episode of vomit last night
Objective Data
-
Labs:
Laboratory Results
08/15/24
07:50
WBC 6.1
Hgb 11.4 L
Hct 37.1
Plt Count 174 D
Sodium 152 H D
Potassium 4.5
Chloride 120 H
Carbon Dioxide 18 L
BUN 71 H
Creatinine 4.4 H*
Glucose 93
Calcium 10.8 H D
Vital Signs:
Vital Signs
Temp Pulse Resp BP Pulse Ox
98.0 F 82 24 107/88 99
08/15/24 07:50 08/15/24 07:50 08/15/24 07:50 08/15/24 07:50 08/15/24 07:50
I&O
08/14/24 08/15/24 08/16/24
06:59 06:59 06:59
Intake Total 730 / 730 0 / 1840
Balance 730 / 730 1840 / 1840
Physical Exam
-
General: No Apparent Distress and Appears Chronically Ill
HEENT: Normocephalic and Atraumatic
Respiratory: Negative Wheezes
Cardiac: Regular Rhythm and S1/S2
GI: Soft and Nontender
Genito-urinary: No Costovertebral Tender
Neuro: AO x 3
Hematologic / Lymphatic: No Lymphadenopathy
Psych: Calm
Data Reviewed
-
Total Time Spent with Patient (in minutes): 42
Labs: Labs Reviewed by me
[2024-08-15] MEDS: FEOSOL 325 MG PO (10:33)
[2024-08-15] MEDS: LIPITOR 40 MG PO (10:33)
[2024-08-15] MEDS: NEPHROCAP 1 CAPSULE PO (10:34)
[2024-08-15] MEDS: ELIQUIS 2.5 MG PO ×2 (10:34→20:38)
[2024-08-15 11:30] VITALS: BP 111/64
[2024-08-15] MEDS: SODIUM CHLORIDE 1009.625 MEQ IV (15:12)
[2024-08-15 15:20] VITALS: BP 97/62
[2024-08-15] MEDS: STERILE WATER FOR INJECTION 20 ML IV (15:29)
[2024-08-15] MEDS: ROCEPHIN 2000 MG IV (15:29)
--- NOTE | 2024-08-15 16:37 | W.PN.NEPH.PH ---
Today's Communication / Plan
-
resume hypotonic IVF
Assessment/Plan
-
IMP:
Acute TME
GPC bacteremia
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
Non gap Metabolic Acidosis
Hypernatremia
Mild hypercalcemia
Anemia-macrocytic
Hypotension on admit
Benign Hypertension
Paroxysmal Atrial Fibrillation
Chronic Macrocytic Anemia
Chronic Impaired Cognition
Bipolar Disorder
Schizoaffective Disorder
SZDO?
h/o DVT, PE -factor V leiden
Plan:
A/w AMS from [facility]
REINA-last cr was at 3.3 in Jul 2023, 3.6 at [facility]
cr up at 4.4 and worsening hypernatremia likely poor po intake, UOP not measured
resume hypotonic fluids
monitor met acidosis-add soidum bicarb
labs later today
no emergent indication of HD however high risk of needing if no improvement in future
Previously Dr. Patel spoke with and felt
over all she likely not an ideal candidate for retirement HD this was reviewed with on phone in detail and he agrees -likely not pursue [employer]
-
-
Date of Service: August 15, 2024
CC / HPI / ROS
-
Chief Complaint:
REIAN
History of Present Illness:
REINA/Cr up at 4.4
Sodium up at 152
Acidosis worse at 18
BP Stable
hb low 9.8
Review of Systems:
No chest pain or shortness of breath noted
difficult to understand speech
Labs
-
Labs:
WBC 6.1 10^3/uL (4.8-10.8) 08/15/24 07:50
RBC 3.31 10^6/uL (4.20-5.40) L 08/15/24 07:50
Hgb 11.4 g/dL (12.0-16.0) L 08/15/24 07:50
Hct 37.1 % (37.0-47.0) 08/15/24 07:50
Plt Count 174 10^3/uL (130-400) D 08/15/24 07:50
eGFR 10.63 08/15/24 07:50
Albumin 3.3 g/dl (3.5-5.0) L 08/12/24 05:17
Physical Exam
-
Vital Signs:
Vital Signs
Temp Pulse Resp BP Pulse Ox
98.9 F 111 24 111/64 97
08/15/24 11:30 08/15/24 11:30 08/15/24 11:30 08/15/24 11:30 08/15/24 11:30
Cardiovascular:: Regular rate and rhythm
Respiratory:: Bilateral: CTA
Lung Excursion:: Normal
Abdomen:: Nontender and Soft
Extremity Edema:: None: Bilateral:
Rodríguez Catheter: No
[2024-08-15] MEDS: SODIUM BICARBONATE 650 MG PO (20:38)
[2024-08-15 21:39] LABS: Blood Urea Nitrogen 72 mg/dl (7-17); Calcium 11.4 mg/dl (8.4-10.2); Carbon Dioxide 18 mmol/L (22-30); Chloride 121 mmol/L (98-107); Estimated Creatinine Clearance 8 ml/min; Glucose 77 mg/dl (70-99); Potassium 4.9 mmol/L (3.5-5.1); Sodium 153 mmol/L (135-145); eGFR 10.08
[2024-08-15] MEDS: REMERON 7.5 MG PO (22:00)
[2024-08-15] MEDS: COLACE PO (22:00)
[2024-08-15] MEDS: SENOKOT 17.2 MG PO (22:00)
[2024-08-16 01:13] VITALS: BP 116/75
[2024-08-16] MEDS: SODIUM CHLORIDE 1009.625 MEQ IV (04:51)
[2024-08-16 07:00] VITALS: BP 126/75
[2024-08-16 08:11] LABS: Hematocrit 31.6 % (37.0-47.0); Hemoglobin 9.7 g/dL (12.0-16.0); Mean Corp Hgb Conc. 30.7 g/dL (33.0-37.0); Mean Corpuscular Hgb 33.9 pg (27.0-31.0); Mean Corpuscular Volume 110.5 fL (81.0-99.0); Mean Platelet Volume 10.7 fL (7.4-10.4); Platelet Count 164 10^3/uL (130-400); Red Blood Cell Count 2.86 10^6/uL (4.20-5.40); Red Cell Dist. Width 19.9 % (11.5-14.5); White Blood Cell Count 6.4 10^3/uL (4.8-10.8)
[2024-08-16 08:32] LABS: Blood Urea Nitrogen 69 mg/dl (7-17); Calcium 10.6 mg/dl (8.4-10.2); Carbon Dioxide 15 mmol/L (22-30); Chloride 120 mmol/L (98-107); Estimated Creatinine Clearance 8 ml/min; Glucose 73 mg/dl (70-99); Potassium 4.6 mmol/L (3.5-5.1); Sodium 153 mmol/L (135-145); eGFR 10.08
[2024-08-16] MEDS: SYMMETREL 100 MG PO ×2 (09:26→20:16)
[2024-08-16] MEDS: PROTONIX 40 MG PO (09:26)
[2024-08-16] MEDS: NEPHROCAP 1 CAPSULE PO (09:26)
[2024-08-16] MEDS: FEOSOL 325 MG PO (09:28)
[2024-08-16] MEDS: ELIQUIS 2.5 MG PO ×2 (09:28→20:13)
[2024-08-16] MEDS: TOPROL XL 25 MG PO (09:28)
[2024-08-16] MEDS: SODIUM BICARBONATE 650 MG PO ×2 (09:28→20:16)
[2024-08-16] MEDS: LIPITOR 40 MG PO (09:29)
[2024-08-16] MEDS: VITAMIN C 500 MG PO (09:29)
[2024-08-16] MEDS: TEGRETOL CHEWABLE 300 MG PO ×2 (09:29→20:13)
[2024-08-16] MEDS: SEROQUEL 150 MG PO ×2 (09:30→20:13)
[2024-08-16] MEDS: KLONOPIN 1 MG PO (09:30)
--- NOTE | 2024-08-16 09:43 | PTCARENOTE ---
Addendum entered by Shonna Ferrer RN 08/16/24 12:45:
Dr Coulter changed ativan order to IM prn. Pt's was at bedside, Dr Coulter had discussion about pt's care and treatment and has decided that [facility] she [facility] he will be making her hospice
Addendum entered by Shonna Ferrer RN 08/16/24 10:31:
Pt fighting with staff, pushing them away when attempting to check IV, attempting to pull at IV, screaming from room. Dr Coulter aware and will order IV Ativan prn and will d/c oral klonopin.
Original Note:
pt would not let RN scan her ID bracelet so RN manually entered pt's ID number.
--- NOTE | 2024-08-16 11:41 | W.PN.HOSP.TC ---
Today's Communication/Plan
-
plan for return to SNF on hospice
continue current therapy for now
updated consultants/CM
Assessment / Plan
Assessment / Plan
Assessment:
Acute TME
Strep bovis bacteremia with Sepsis POA (fever, tachypnea, tachycardia)
- UA/CXR clear
- continue Ceftriaxone per ID x 6 weeks
- 2D echo without evidence of IE. NELLI to be considered
- given associated with GI malignancy, consider EGD/Colonoscopy and Abd MRI
REINA (perhaps ATN) on CKD IV (reported Cr. baseline around 3.6 per facility)
Dehydration with acute hypernatremia, hypercalcemia
acute Metabolic Acidosis
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
- s/p IVF, with rapid increase in hypernatremia and no further improvement in Creat - will d/w Nephrology on further IVF
- follow BMPs
- follow bladder scans
- halfway poor candidate for HD; agrees per discussion with Renal
- on account of non-improving renal failure/hypernatremia - recommended hospice - agreeable.
Benign Hypertension
Paroxysmal Atrial Fibrillation
- continue Eliquis
- continue Metoprolol
Chronic Macrocytic Anemia
- Hb stable around 9.5 to 10 range
Chronic Impaired Cognition (likely Dementia)
Bipolar Disorder
Schizoaffective Disorder with hx of psychosis
- continue Amantadine/Carbamazepine/Klonopin/Remeron/Seroquel
Hx of Factor V Leiden (hx of DVTs)
- maintained now on Eliquis; previously Coumadin
GERD on PPI
Dysphagia
- on IDDSI 5 diet
DVT ppx:
Code: DNR/DNI
Dispo: d/w [facility], no improvement in BMP values with IV hydration, patient not eating, ripping IV lines, agitation/confused. Poor QOL. He agrees to hospice care.
Anticipated Discharge: 24 - 48 hours
Subjective/Interval History
-
Date of Service: August 16, 2024
agitated, confused
Objective Data
-
Labs:
Laboratory Results
08/16/24
07:28
WBC 6.4
Hgb 9.7 L
Hct 31.6 L
Plt Count 164
Sodium 153 H
Potassium 4.6
Chloride 120 H
Carbon Dioxide 15 L
BUN 69 H
Creatinine 4.6 H*
Glucose 73
Calcium 10.6 H
Vital Signs:
Vital Signs
Temp Pulse Resp BP Pulse Ox
98.4 F 104 22 126/75 92
08/16/24 07:00 08/16/24 07:00 08/16/24 07:00 08/16/24 07:00 08/16/24 07:00
I&O
08/15/24 08/16/24 08/17/24
06:59 06:59 06:59
Intake Total 18390 1580 / 1580
Balance 1839 1580 / 1580
Physical Exam
-
General: No Apparent Distress
HEENT: Normocephalic and Atraumatic
Respiratory: Negative Wheezes
Cardiac: Regular Rhythm and S1/S2
GI: Soft and Nontender
Psych: Calm and Apparent Dementia
Data Reviewed
-
Total Time Spent with Patient (in minutes): 41
Labs: Labs Reviewed by me
[2024-08-16] MEDS: ATIVAN 1 MG IM (12:39)
--- NOTE | 2024-08-16 13:26 | CM ---
Per hospitalist, pt is not improving, spoke w/ spouse about hospice, spouse agreeable. Pt can d/c tomorrow.
CM spoke w/ spouse who confirmed hospice for pt upon her return to [facility]. Spouse stated he doesn't have a car and paid for a rental to see pt today and is asking if he can stay w/ pt at [facility] when she returns. CM shared that she is unsure
of this option and will have to speak w/ [facility] to discuss w/ him. Spouse does not have a preferred hospice provider.
CM placed hospice referral.
CM spoke w/ [facility] admissions regarding d/c plan. Per Jerson, their preferred provider is [facility] hospice and social director will call spouse tomorrow to further discuss and coordinate hospice signing on upon pt's return. Jerson stated all he
needs from is hospice eval and treat order.
TT hospitalist to place order for hospice.
Updated operations liaison as facility will coordinate and use their preferred provider.
Pt will need ambulance transport
Plan: Return to [facility] tomorrow. Facility will coordinate hospice upon pt's return
--- NOTE | 2024-08-16 14:06 | HOSPNOTE ---
Hospice referral received. Patient is from [facility]. Reviewed we are not the preferred with [facility] but would be willing to speak to the to provide information. Per CM- [facility] liaison will contact the tomorrow and provide information on
hospice and the hospices that are their preferred. Hospice will sign off at this time. CM aware.
[2024-08-16] MEDS: SODIUM CHLORIDE IV (14:10)
[2024-08-16 15:17] VITALS: BP 101/65
--- NOTE | 2024-08-16 16:51 | W.PN.NEPH.PH ---
Today's Communication / Plan
-
hospice
Assessment/Plan
-
IMP:
Acute TME
GPC bacteremia
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
Non gap Metabolic Acidosis
Hypernatremia
Mild hypercalcemia
Anemia-macrocytic
Hypotension on admit
Benign Hypertension
Paroxysmal Atrial Fibrillation
Chronic Macrocytic Anemia
Chronic Impaired Cognition
Bipolar Disorder
Schizoaffective Disorder
SZDO?
h/o DVT, PE -factor V leiden
Plan:
A/w AMS from [facility]
REINA-last cr was at 3.3 in Jul 2023, 3.6 at [facility]
cr up at 4.6, worsening hypernatremia likely poor po intake
unable to run IVF pt not cooperative too
agree that she is hospice appropriate
will s/o, call with ?s
-
-
Date of Service: August 16, 2024
CC / HPI / ROS
-
Chief Complaint:
REINA
History of Present Illness:
REINA/Cr up at 4.6
Sodium up at 153
Acidosis worse at 15
BP Stable
hb low 9.7
Review of Systems:
does not appear to be in distress
on RA, no fever
difficult to understand speech
Labs
-
Labs:
WBC 6.4 10^3/uL (4.8-10.8) 08/16/24 07:28
RBC 2.86 10^6/uL (4.20-5.40) L 08/16/24 07:28
Hgb 9.7 g/dL (12.0-16.0) L 08/16/24 07:28
Hct 31.6 % (37.0-47.0) L 08/16/24 07:28
Plt Count 164 10^3/uL (130-400) 08/16/24 07:28
Sodium 153 mmol/L (135-145) H 08/16/24 07:28
Potassium 4.6 mmol/L (3.5-5.1) 08/16/24 07:28
Chloride 120 mmol/L (98-107) H 08/16/24 07:28
Carbon Dioxide 15 mmol/L (22-30) L 08/16/24 07:28
BUN 69 mg/dl (7-17) H 08/16/24 07:28
Creatinine 4.6 mg/dL (0.6-1.0) H* 08/16/24 07:28
eGFR 10.08 08/16/24 07:28
Glucose 73 mg/dl (70-99) 08/16/24 07:28
Calcium 10.6 mg/dl (8.4-10.2) H 08/16/24 07:28
Albumin 3.3 g/dl (3.5-5.0) L 08/12/24 05:17
Physical Exam
-
Vital Signs:
Vital Signs
Temp Pulse Resp BP Pulse Ox
98.4 F 85 20 101/65 100
08/16/24 15:17 08/16/24 15:17 08/16/24 15:17 08/16/24 15:17 08/16/24 15:17
Cardiovascular:: Regular rate and rhythm
Respiratory:: Bilateral: CTA
Lung Excursion:: Normal
Abdomen:: Nontender and Soft
Extremity Edema:: None: Bilateral:
Rodríguez Catheter: No
[2024-08-16] MEDS: COLACE PO (20:13)
[2024-08-16] MEDS: SENOKOT 17.2 MG PO (21:10)
[2024-08-16] MEDS: REMERON 7.5 MG PO (21:10)
[2024-08-17] VITALS: BP 126/75
[2024-08-17] MEDS: ATIVAN 1 MG IM ×2 (01:14→09:47)
[2024-08-17 07:00] VITALS: BP 130/73
[2024-08-17] MEDS: NEPHROCAP 1 CAPSULE PO (09:32)
[2024-08-17] MEDS: LIPITOR 40 MG PO (09:32)
[2024-08-17] MEDS: ELIQUIS 2.5 MG PO (09:33)
[2024-08-17] MEDS: VITAMIN C 500 MG PO (09:33)
[2024-08-17] MEDS: SEROQUEL 150 MG PO (09:33)
[2024-08-17] MEDS: FEOSOL 325 MG PO (09:33)
[2024-08-17] MEDS: TOPROL XL 25 MG PO (09:33)
[2024-08-17] MEDS: TEGRETOL CHEWABLE 300 MG PO (09:33)
[2024-08-17] MEDS: SYMMETREL 100 MG PO (09:33)
[2024-08-17] MEDS: PROTONIX 40 MG PO (09:34)
[2024-08-17] MEDS: SODIUM BICARBONATE 650 MG PO (09:34)
--- NOTE | 2024-08-17 09:45 | CM ---
CM reviewed chart, patient for discharge today, return to [facility] with Hospice services to sign on at facility. Patient scheduled for 2:00 p.m. ambulance transport. [facility] updated, facility updated with transport time. Hospice
eval/treat order faxed to [phone]. CM will continue to follow for all discharge planning needs.
Plan; return to SNF with Hospice services, 2:00 p.m. ambulance transport
[facility]
Report [phone]
--- NOTE | 2024-08-17 09:57 | W.PN.HOSP.TC ---
Today's Communication/Plan
-
dc to SNF with hospice care
Assessment / Plan
Assessment / Plan
Assessment:
Acute TME
Strep bovis bacteremia with Sepsis POA (fever, tachypnea, tachycardia)
- UA/CXR clear
- continue Ceftriaxone per ID x 6 weeks
- 2D echo without evidence of IE. NELLI to be considered
- given associated with GI malignancy, consider EGD/Colonoscopy and Abd MRI
REINA (perhaps ATN) on CKD IV (reported Cr. baseline around 3.6 per facility)
Dehydration with acute hypernatremia, hypercalcemia
acute Metabolic Acidosis
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
- s/p IVF, with rapid increase in hypernatremia and no further improvement in Creat - will d/w Nephrology on further IVF
- follow BMPs
- follow bladder scans
- prison poor candidate for HD; agrees per discussion with Renal
- on account of non-improving renal failure/hypernatremia - recommended hospice - agreeable.
Benign Hypertension
Paroxysmal Atrial Fibrillation
- continue Eliquis
- continue Metoprolol
Chronic Macrocytic Anemia
- Hb stable around 9.5 to 10 range
Chronic Impaired Cognition (likely Dementia)
Bipolar Disorder
Schizoaffective Disorder with hx of psychosis
- continue Amantadine/Carbamazepine/Klonopin/Remeron/Seroquel
Hx of Factor V Leiden (hx of DVTs)
- maintained now on Eliquis; previously Coumadin
GERD on PPI
Dysphagia
- on IDDSI 5 diet
DVT ppx:
Code: DNR/DNI
Dispo: d/w [facility], no improvement in BMP values with IV hydration, patient not eating, ripping IV lines, agitation/confused. Poor QOL. He agrees to hospice care. stop all acute treatments and unnecessary meds when on hospice
More than 30 minutes spent in discharge including
Final examination of the patient
Summarizing hospital stay
Instructions for continuing care to all relevant caregivers
Preparation of discharge records, prescriptions, and referral forms
Total time spent (in minutes): 42
Anticipated Discharge: Today
Subjective/Interval History
-
Date of Service: August 17, 2024
no new complaints
Objective Data
-
Labs:
Laboratory Results
08/17/24
09:22
WBC Pending
Hgb Pending
Hct Pending
Plt Count Pending
Sodium Pending
Potassium Pending
Chloride Pending
Carbon Dioxide Pending
BUN Pending
Creatinine Pending
Glucose Pending
Calcium Pending
Vital Signs:
Vital Signs
Temp Pulse Resp BP Pulse Ox
98.5 F 85 22 130/73 100
08/17/24 07:00 08/17/24 07:00 08/17/24 07:00 08/17/24 07:00 08/17/24 07:00
I&O
08/16/24 08/17/24 08/18/24
06:59 06:59 06:59
Intake Total 1580 / 1580 490 / 490
Balance 1580 / 1580 490 / 490
Physical Exam
-
General: No Apparent Distress
HEENT: Normocephalic and Atraumatic
Respiratory: Negative Wheezes
Cardiac: Regular Rhythm and S1/S2
GI: Soft and Nontender
Musculoskeletal: No Edema
Neuro: AO x 3
Hematologic / Lymphatic: No Lymphadenopathy
Psych: Calm
Data Reviewed
-
Total Time Spent with Patient (in minutes): 42
Labs: Labs Reviewed by me
--- NOTE | 2024-08-17 10:03 | W.DS.TRANS ---
DC Summary - Transmission Assembler
-
Discharge Instructions:
Discharge Diagnosis/Procedures REINA on CKD stage 4, hypernatremia, Strep bovis
bacteremia
Diet Regular,As tolerated,No restrictions
Activity As tolerated,No restrictions
Other Services Hospice
Instructions:
Stand-Alone Forms:
Changes to Home Medications: No
Discharge Medications:
DC Medications w/original date entered in [employer]
ascorbic acid (vitamin C) 500 mg tablet 500 mg PO DAILY Supplement #0 tabs 03/31/23
ferrous sulfate 325 mg (65 mg iron) tablet (FeroSul) 325 mg PO DAILY Supplement #0 tabs 03/31/23
polyethylene glycol 3350 17 gram oral powder packet (HealthyLax) 17 g PO DAILY Constipation #0 ea 03/31/23
sennosides 8.6 mg tablet (Senna Laxative) 17.2 mg (2 x 8.6 mg) PO HS Constipation #0 tabs 03/31/23
apixaban 2.5 mg tablet 2.5 mg PO BID 08/09/23
docusate sodium 100 mg capsule 200 mg PO HS Constipation 08/09/23
acetaminophen 325 mg tablet (Tylenol) 650 mg PO Q4H PRN mild pain/fever 08/11/24
amantadine HCl 100 mg tablet 100 mg PO BID drug induces dyskinesia 08/11/24
atorvastatin 40 mg tablet 40 mg PO DAILY 08/11/24
bisacodyl 10 mg rectal suppository 10 mg MT DAILY PRN no BM post MOM 08/11/24
carbamazepine 100 mg chewable tablet 300 mg PO BID 08/11/24
magnesium hydroxide 400 mg/5 mL oral suspension (Milk of Magnesia) 30 ml PO DAILYPRN PRN no BM x 72 hours 08/11/24
metoprolol succinate 25 mg capsule sprinkle, ext. release 24 hr 25 mg PO DAILY 08/11/24
mirtazapine 7.5 mg tablet 7.5 mg PO HS 08/11/24
pantoprazole 40 mg tablet,delayed release (Protonix) 40 mg PO DAILY 08/11/24
quetiapine 150 mg tablet 150 mg PO BID 08/11/24
sodium bicarbonate 650 mg tablet 650 mg PO TID 08/11/24
vitamin B complex-vitamin C-folic acid 0.8 mg tablet (Renal-Karina) 1 tab PO DAILY 08/11/24
clonazepam 1 mg tablet 1 mg PO TID Mental Health/Anxiety #6 tabs 08/17/24
Home Medication Changes
Pending Results: No
Total time spent discharging patient (in min): 42
--- NOTE | 2024-08-17 10:13 | W.PN.ID1 ---
Date of Service
Date of Service: August 17, 2024
Today's Communication
Transition ceftriaxone 2 gm to amoxicillin 500mg po daily x 6 weeks through 09/23/24.
Assessment / Plan
S bovis Bacteremia
Possible Endocarditis
Change in mental status; suspect TME
Normal white count with left shift
Hypernatremia
REINA on CKD
HTN
CKD
A-fib
Schizoaffective disorder
Bipolar disease
Recommendations:
S bovis, associated with GI malignancies and endocarditis
TTE 08/12 normal EF without valvular lesions
Repeat blood cx negative to date
Note Nephrology comment that patient is not an ideal correction HD candidate.
Poor prognosis.
Pt transitioning to hospice.
Transition ceftriaxone 2 gm to amoxicillin 500mg po daily x 6 weeks through 09/23/24.
Chief Complaint
-: Bacteremia (S bovis)
Subjective / Review of Systems
Confused
Vital Signs / Physical Exam
Vital Signs
Vital Signs
Temp Pulse Resp BP Pulse Ox
98.5 F 85 22 130/73 100
08/17/24 07:00 08/17/24 07:00 08/17/24 07:00 08/17/24 07:00 08/17/24 07:00
Physical Exam
Constitutional: Chronically Ill
Cardiovascular: Regular Rate and S1/S2
Gastrointestinal: Soft, Non Tender and Non Distended
Psychological: Confused
Objective Data
Lab Data
Estimated Creat Clear 8 ml/min 08/16/24 07:28
Lactic Acid 1.2 mmol/L (0.7-2.0) 08/11/24 10:05
Total Bilirubin 0.4 mg/dl (0.2-1.3) 08/12/24 05:17
AST 29 U/L (14-36) 08/12/24 05:17
ALT 33 U/L (0-35) 08/12/24 05:17
Alkaline Phosphatase 83 U/L (38-126) 08/12/24 05:17
Most recent labs reviewed.
Micro Results:
08/13/24 16:50 Blood Culture - Preliminary
Blood/Venous No Growth in 72 hours- Final report to follow
08/13/24 13:34 Blood Culture - Preliminary
Blood/Venous No Growth in 72 hours- Final report to follow
08/11/24 10:05 Blood Culture - Preliminary
Blood/Venous Streptococcus bovis
Gram Stain - Preliminary
08/11/24 10:07 Blood Culture - Preliminary
Blood/Venous Streptococcus bovis
Gram Stain - Preliminary
08/12/24 05:17 MRSA Screen - Final
Nose Staph aureus MRSA
08/11/24 10:05 Influenza Types A & B (OLGA) - Final
Nasal Swab Negative for Influenza A & B, NAAT
Negative results must be combined with clinical observations
and patient history.
Nucleic Acid Amplification test (NAAT)performed on the
[employer] platform.
Imaging:
08/12/2024 ECHO (TTE): Normal LV size and function. EF approximately 55%. Mild concentric left ventricular hypertrophy. No significant valvular pathology noted. Please see full dictation for additional detail.
08/12/2024 Renal ultrasound: Findings are suggestive of bilateral renal disease although no aggressive renal mass demonstrated. No hydronephrosis noted.
Care Review
Plan reviewed with: Physician (Dr. Coulter)
[2024-08-17 10:34] LABS: Estimated Creatinine Clearance 7 ml/min; eGFR 9.34
[2024-08-17 10:35] LABS: Blood Urea Nitrogen 69 mg/dl (7-17); Calcium 10.8 mg/dl (8.4-10.2); Carbon Dioxide 16 mmol/L (22-30); Chloride 126 mmol/L (98-107); Glucose 117 mg/dl (70-99); Potassium 4.8 mmol/L (3.5-5.1); Sodium 158 mmol/L (135-145)
[2024-08-17 10:39] LABS: Hematocrit 32.8 % (37.0-47.0); Hemoglobin 9.9 g/dL (12.0-16.0); Mean Corp Hgb Conc. 30.2 g/dL (33.0-37.0); Mean Corpuscular Hgb 34.4 pg (27.0-31.0); Mean Corpuscular Volume 113.9 fL (81.0-99.0); Mean Platelet Volume 10.7 fL (7.4-10.4); Platelet Count 197 10^3/uL (130-400); Red Blood Cell Count 2.88 10^6/uL (4.20-5.40); White Blood Cell Count 7.4 10^3/uL (4.8-10.8)
[2024-08-17 14:10] VITALS: BP 117/90
== END 2024-08-17 15:53 | disposition hospice, inpatient (51) | DRG 871 ==
LOC: 4 WEST ACU 19:48
PROVIDERS: Nurse Practitioner Family; Physician Assistant; Specialist; ADMITTING PHYSICIAN Hospitalist; ATTENDING PHYSICIAN Internal Medicine; CONSULT PHYSICIAN Internal Medicine; EMERGENCY PHYSICIAN Emergency Medicine; FAMILY PHYSICIAN Internal Medicine; OTHER PHYSICIAN Internal Medicine Infectious Disease
DX: A40.8 Other streptococcal sepsis (principal); G92.8 Other toxic encephalopathy; F03.93 Unspecified dementia, unspecified severity, with mood disturbance; N17.9 Acute kidney failure, unspecified; N18.4 Chronic kidney disease, stage 4 (severe); D68.51 Activated protein C resistance; E87.0 Hyperosmolality and hypernatremia; E87.21 Acute metabolic acidosis; Z66 Do not resuscitate; Z51.5 Encounter for palliative care; F25.9 Schizoaffective disorder, unspecified; F31.9 Bipolar disorder, unspecified; I48.0 Paroxysmal atrial fibrillation; I12.9 Hypertensive chronic kidney disease with stage 1 through stage 4 chronic kidney disease, or unspecified chronic kidney disease; D63.1 Anemia in chronic kidney disease; K21.9 Gastro-esophageal reflux disease without esophagitis; E83.52 Hypercalcemia; E78.00 Pure hypercholesterolemia, unspecified; E86.0 Dehydration; E86.1 Hypovolemia; Z11.52 Encounter for screening for COVID-19; Z88.8 Allergy status to other drugs, medicaments and biological substances; Z86.718 Personal history of other venous thrombosis and embolism; Z86.711 Personal history of pulmonary embolism; Z79.899 Other long term (current) drug therapy; Z79.01 Long term (current) use of anticoagulants
CPT/HCPCS: 71045; 76770; 80048; 80053; 80202; 81003; 81015; 82570; 83605; 84300; 85025; 85027; 87040; 87070; 87077; 87147; 87186; 87205; 87502; 87811; 92526; 92610; 93005; 93306; 97162; 97166